=== PATIENT | female | born 1970 | race Caucasian/White ===

== ENCOUNTER → 2018-01-16 11:22 | Outpatient (CLI) | payer BC, SELFPAY | PROVIDERS: PCP Family Medicine; Visit Provider Physician Assistant | DX: G47.33 Obstructive sleep apnea (adult) (pediatric) (principal); I10 Essential (primary) hypertension; R00.2 Palpitations; R06.09 Other forms of dyspnea; R42 Dizziness and giddiness; Z82.49 Family history of ischemic heart disease and other diseases of the circulatory system; Z87.891 Personal history of nicotine dependence | CPT/HCPCS: 93225; 93226 ==

== ENCOUNTER → 2018-01-25 07:41 | Outpatient (CLI) | payer BC, SELFPAY ==
--- NOTE | 2018-01-25 07:43 | CA_ITS ---
PROCEDURE: 2-D M-mode and color Doppler study INDICATIONS FOR THE TEST: Chest pain COPD Heart Murmur Tobacco Smoking Palpitations+ Fatigue+ Syncope Edema+ Hypertension+Diabetes Mellitus Rheumatic Fever SOB+CHAPARRO+Obesity Hyperlipidemia Family History HD+ Additional History PATIENT INFORMATION HEIGHT: 62 WEIGHT: 205 GENDER: Female B/P: 118/75 2-D/M-MODE INTERPRETATION: 2-D MEASUREMENTS OBSERVED VALUES IN CMS Right Ventricular Dimension (RVDd) 2.3 Interventricular Septum (Thickness)(IVsd) 0.8 Left Ventricular Internal Dimensions(LVIDd) 5.0 Left Ventricular Posterior Wall (Thickness)(LVPWd) 0.8 Aortic Root 2.8 Aortic Cusp Separation 2.0 Left Atrial Dimensions (LAD) 3.8 2D 1. Left atrium is normal size, left ventricle is normal size, there is no concentric left ventricular hypertrophy, visually estimated ejection fraction of 55% with no regional wall motion abnormality. 2. The right atrium and right ventricle are normal size and contractility. 3. The aortic, mitral and tricuspid valvular grossly normal. 4. The pulmonic valve is poorly visualized. 5. No significant pericardial effusion noted DOPPLER INTERROGATION: Doppler interrogation of the aortic, mitral and tricuspid valvular presence of mild mitral and tricuspid regurgitation, tricuspid regurgitation jet velocity is inadequate for calculation of the right ventricular systolic pressure, diastolic parameters are within normal range. CONCLUSION: 1. Normal left ventricular size, preserved left ventricular systolic function, visually estimated ejection fraction of 55% with no regional wall motion abnormality, diastolic parameters are within normal range. 2. Mild mitral and tricuspid regurgitation 3. No significant pericardial effusion noted.
== END ==
PROVIDERS: PCP Family Medicine; Visit Provider Internal Medicine
DX: R00.2 Palpitations (principal); R06.09 Other forms of dyspnea; G47.33 Obstructive sleep apnea (adult) (pediatric); I10 Essential (primary) hypertension; R42 Dizziness and giddiness; Z82.49 Family history of ischemic heart disease and other diseases of the circulatory system; Z87.891 Personal history of nicotine dependence
CPT/HCPCS: 93017; 93306

== ENCOUNTER 2018-07-27 09:05 | Emergency (ER) | payer BC, SELFPAY ==
[2018-07-27 09:26] VITALS: BP 104/68; PULSE 84; RESP 18; TEMP 37.2; O2SAT 96; BMI 40.2
--- NOTE | 2018-07-27 09:33 | HMH.EDUTC ---
[facility] [place] Clinical Impression: Urinary tract infection Qualifiers: Urinary tract infection type: site unspecified Hematuria presence: with hematuria Qualified Code(s): N39.0 - Urinary tract infection, site not specified; R31.9 - Hematuria, unspecified Disposition: Home, Self-Care Condition on Discharge: Good Instructions: Sore Throat, Urinary Tract Infection, DI for Urinary Tract Infection (UTI), Nitrofurantoin, Phenazopyridine Additional Instructions: *Increase fluids. Water not Soda or Tea *Start antibiotic immediately and be sure to take as ordered for the FULL length of time although you should start to see improvement over the next 48 hours *Pyridium as needed Remember this medication will turn your urine [place]. This is normal but it will stain what ever it gets on *You should not use Pyridium for more than 48 hours. If so , follow up with your primary physician to review urine culture and ensure that antibiotic is adequate for infection *Be SURE to follow up anytime for new or worsening symptoms with your family doctor. AND in 48 hours for urine culture results with your family doctor, if you do not have a doctor then you may call back to the [facility] for urine culture results and further treatment. We do recommend that you choose and establish care with a Primary Care Physician. AND follow up with them in 10-14 days to repeat UA to ensure infection is resolved and blood no longer present *Be sure to let your PCP know that we sent urine cultures from the [facility] so they can follow up to ensure that you area the on the correct antibiotic Call your doctor office and make appointment for 48 hours (2 days from today) to follow up and get the results of your urine culture and further treatment and that you had blood in your urine. *Monitor Temp, Over the counter Motrin or Tylenol as directed/as needed Tylenol every 4 hours and Motrin every 6 hours (as long as your family doctor has told you that you can take it) for fever or pain. and straight to ER if unable to lower temp less than 101.0 after medication given *Warm salt water gargles may help to soothe the throat *Throat Lozenges *Warm fluids *Sleep elevated *Humidifier/Vaporizer Your throat swab was sent for culture. Those results are typically sent to your primary care. Be sure to follow up in 2-3 days with your family doctor/primary care physician if no improvement so they can review those result and treat if necessary. If you don?t have a primary care doctor, I recommend you get one but in the mean time, you will have to return to a walk in clinic Follow up IMMEDIATELY for new or worsening symptoms or no Noticeable improvement over the next 48-72 hours. 911 for difficulty breathing or swallowing Prescriptions: Nitrofurantoin Monohyd/M-Cryst [Macrobid 100 mg Capsule] 100 mg PO BID #14 cap Phenazopyridine HCl [Pyridium 200mg Tablet] 200 pow PO TID #6 tab Referrals: Jj Jacobs [Primary Care Provider] - As needed Time of Disposition: 09:47 Medical Decision Making - Luciano Inquiry Pt receiving controlled substance: No Luciano was queried for this patient: No Vital Signs: 07/27/18 09:26 Temperature 98.9 F Temperature Source Oral Pulse Rate [Right Brachial] 84 Respiratory Rate 18 Blood Pressure [Right Arm] 104/68 L Blood Pressure Mean [Right Arm] 80 Blood Pressure Source [Right Arm] Automatic Cuff Blood Pressure Position [Right Arm] Sitting 02 Sat by Pulse Oximetry 96 Oxygen Delivery Method Room Air - Lab Data Lab results reviewed: Yes: I reviewed the patient's lab results. [facility] [place] - General Stated complaint: Possible UTI, Sore throat Time Seen by Provider: 07/27/18 09:33 Mode of Arrival: Family Vehicle Source of Information: Patient Limitations: No Limitations Description of Symptoms (Recalled from Triage Doc. by RN): c/o burning with urination and frequency and sore throat since yesterday HEENT Symptoms (Recalled from RN notes): Yes Resp Sympto
[2018-07-27 09:38] LABS: UTC Strep Screen (Rapid) Negative (Negative)
--- NOTE | 2018-07-27 09:38 | ED_ITS ---
[facility] [place] Clinical Impression: Urinary tract infection Qualifiers: Urinary tract infection type: site unspecified Hematuria presence: with hematuria Qualified Code(s): N39.0 - Urinary tract infection, site not specified; R31.9 - Hematuria, unspecified Disposition: Home, Self-Care Condition on Discharge: Good Instructions: Sore Throat, Urinary Tract Infection, DI for Urinary Tract Infection (UTI), Nitrofurantoin, Phenazopyridine Additional Instructions: *Increase fluids. Water not Soda or Tea *Start antibiotic immediately and be sure to take as ordered for the FULL length of time although you should start to see improvement over the next 48 hours *Pyridium as needed Remember this medication will turn your urine [place]. This is normal but it will stain what ever it gets on *You should not use Pyridium for more than 48 hours. If so , follow up with your primary physician to review urine culture and ensure that antibiotic is adequate for infection *Be SURE to follow up anytime for new or worsening symptoms with your family doctor. AND in 48 hours for urine culture results with your family doctor, if you do not have a doctor then you may call back to the [facility] for urine culture results and further treatment. We do recommend that you choose and establish care with a Primary Care Physician. AND follow up with them in 10-14 days to repeat UA to ensure infection is resolved and blood no longer present *Be sure to let your PCP know that we sent urine cultures from the [facility] so they can follow up to ensure that you area the on the correct antibiotic Call your doctor office and make appointment for 48 hours (2 days from today) to follow up and get the results of your urine culture and further treatment and that you had blood in your urine. *Monitor Temp, Over the counter Motrin or Tylenol as directed/as needed Tylenol every 4 hours and Motrin every 6 hours (as long as your family doctor has told you that you can take it) for fever or pain. and straight to ER if unable to lower temp less than 101.0 after medication given *Warm salt water gargles may help to soothe the throat *Throat Lozenges *Warm fluids *Sleep elevated *Humidifier/Vaporizer Your throat swab was sent for culture. Those results are typically sent to your primary care. Be sure to follow up in 2-3 days with your family doctor/primary care physician if no improvement so they can review those result and treat if necessary. If you don?t have a primary care doctor, I recommend you get one but in the mean time, you will have to return to a walk in clinic Follow up IMMEDIATELY for new or worsening symptoms or no Noticeable improvement over the next 48-72 hours. 911 for difficulty breathing or swallowing Prescriptions: Nitrofurantoin Monohyd/M-Cryst [Macrobid 100 mg Capsule] 100 mg PO BID #14 cap Phenazopyridine HCl [Pyridium 200mg Tablet] 200 pow PO TID #6 tab Referrals: Jj Jacobs [Primary Care Provider] - As needed Time of Disposition: 09:47 Medical Decision Making - Luciano Inquiry Pt receiving controlled substance: No Luciano was queried for this patient: No Vital Signs: 07/27/18 09:26 Temperature 98.9 F Temperature Source Oral Pulse Rate [Right Brachial] 84 Respiratory Rate 18 Blood Pressure [Right Arm] 104/68 L Blood Pressure Mean [Right Arm] 80 Blood Pressure Source [Right Arm] Automatic Cuff Blood Pressure Position [Right Arm] Sitting 02 Sat by Pulse Oximetry 96 Oxygen Delivery Method Room Air - Lab Data Lab
[2018-07-27 09:47] LABS: Color,Urine Yellow (Yellow)
[2018-07-27 09:48] VITALS: BP 104/68; PULSE 84; RESP 18; TEMP 37.2; O2SAT 96
[2018-07-27 09:48] LABS: Apearance,Urine Clear (Clear); Glucose,Urine (UA) Negative (Negative); Ketones,Urine Negative (Negative); PH,Urine 6.5 (5.0-8.5); Protein,Urine 1+ (Negative)
[2018-07-27 09:49] LABS: Bilirubin,Urine Negative (Negative); Blood, Urine 1+ (Negative); Urobilinogen,Urine 0.2 EU/dl (0.2)
[2018-07-27 09:50] LABS: UTC Leukocyte Esterase,Urine Negative (Negative); UTC Nitrate,Urine Negative (Negative)
== END 2018-07-27 09:51 | disposition home or self-care (01) ==
PROVIDERS: Emergency Provider Nurse Practitioner; PCP Family Medicine
DX: N39.0 Urinary tract infection, site not specified (principal); F41.8 Other specified anxiety disorders; K21.9 Gastro-esophageal reflux disease without esophagitis; I10 Essential (primary) hypertension; Z87.891 Personal history of nicotine dependence
CPT/HCPCS: 81003; 87086; 87088; 87186; 87880; 99202

== ENCOUNTER 2020-03-26 10:27 | Emergency (ER) | payer BC, SELFPAY ==
[2020-03-26 11:23] VITALS: BP 105/72; PULSE 76; RESP 16; TEMP 36.3; O2SAT 98; BMI 34.7
--- NOTE | 2020-03-26 11:28 | HMH.EDUTC ---
[place] Disposition Clinical Impression: Exposure to COVID-19 virus Disposition: Home, Self-Care Condition on Discharge: Good Instructions: DI for COVID-19 (Suspected or Confirmed ), Coronavirus Disease 2019, COVID-19: Testing and Tracing, Preventing the Spread of Coronavirus Discharge Instructions Additional Instructions: *Monitor Temp, Over the counter Motrin or Tylenol as directed/as needed Tylenol every 4 hours and Motrin every 6 hours (as long as your family doctor has told you that you can take it) for fever or pain. and straight to ER if unable to lower temp less than 101.0 after medication given Follow up IMMEDIATELY for new or worsening symptoms or no Noticeable improvement over the next 48-72 hours. 911 for difficulty breathing or swallowing You were tested for today for COVID19 your test result should be back in the next 24-48 hours, you may call to the [facility] to see if your test results are back in the next 48 hours [phone] [facility] hours are 9am-9pm You was given a handout with instructions for Self Quarantine and Self isolation for while you wait on test results and what to do if they are positive If you are positive the Health Dept will be contacting you also Referrals: Jj Jacobs JR, MD [Primary Care Provider] - Forms: Work/School Release Time of Disposition: 11:29 Medical Decision Making - Luciano Inquiry Pt receiving controlled substance: No Luciano was queried for this patient: No Vital Signs: 03/26/20 11:23 03/26/20 11:38 Temperature 97.3 F L 97.3 F L Temperature Source Oral Pulse Rate 76 Pulse Rate [Right] 76 Respiratory Rate 16 16 Blood Pressure 105/72 L Blood Pressure [Right Arm] 105/72 L Blood Pressure Mean [Right Arm] 83 Blood Pressure Source Automatic Cuff Blood Pressure Source [Right Arm] Automatic Cuff Blood Pressure Position Sitting Blood Pressure Position [Right Arm] Sitting 02 Sat by Pulse Oximetry 98 Oxygen Delivery Method Room Air Room Air Orders (Tests/Meds): ORDERS Category Date Time Status Covid-19 Nasal PCR ([facility]) Routine Lab 03/26/20 11:05 Received [place] HPI - General Stated complaint: exposure Time Seen by Provider: 03/26/20 11:28 Mode of Arrival: Ambulatory Source of Information: Patient Limitations: No Limitations Description of Symptoms (Recalled from Triage Doc. by RN): covid exposure. no symptoms HEENT Symptoms (Recalled from RN notes): No Resp Symptoms (Recalled from RN notes): No Skin Symptoms (Recalled from RN notes): No MS Symptoms (Recalled from RN notes): No Functional Status (Recalled from RN notes): na - History of Present Illness Provider Complaint: Patient states that she was recently around someone that has since tested positive for COVID States that she isnt having any symptoms but wanted to get tested due to exposure - Related Data Home Medications Medication Instructions Recorded Confirmed omeprazole 40 mg capsule,delayed 40 mg PO DAILY 01/16/18 05/13/19 release lisinopril 20 mg tablet 20 mg PO BID tab 02/28/18 05/13/19 doxepin 50 mg capsule 25 mg PO QHS 30 Days #30 cap 03/25/18 05/13/19 Rosuvastatin Calcium [Crestor 10mg 10 mg PO DAILY 05/13/19 05/13/19 Tablets] ursodioL [Actigall 300mg capsule] 300 mg PO BID 05/13/19 05/13/19 Previous Rx's Medication Instructions Recorded Fluticasone Propionate [Flonase 1 spr NS DAILY #1 bottle 05/13/19 50mcg nasal spray 16gm] Allergies Allergy/AdvReac Type Severity Reaction Status Date / Time simvastatin Allergy Verified 07/27/18 09:32 - Worker's Comp Is this a Worker's Comp case?: No [facility] History - Hepatitis A Screen Drug use history?: No High risk sexual behaviors?: No History of sexually transmitted infection?: No Currently employed?: No Childcare worker?: No Do you have indoor plumbing?: Yes Do you have electricity?: Yes Attestation statement:: This patient has been screened for Hepatitis A risk factors. I have reviewed the patien
[2020-03-26 11:38] VITALS: BP 105/72; PULSE 76; RESP 16; TEMP 36.3; O2SAT 98
--- NOTE | 2020-03-26 15:06 | PC.NURSE ---
patient notified of positive covid results
== END 2020-03-26 11:39 | disposition home or self-care (01) ==
PROVIDERS: Emergency Provider Nurse Practitioner; PCP Family Medicine
DX: U07.1 COVID-19 (principal); I10 Essential (primary) hypertension; K21.9 Gastro-esophageal reflux disease without esophagitis; F41.9 Anxiety disorder, unspecified; Z79.899 Other long term (current) drug therapy
CPT/HCPCS: 99202; G0463; U0003

== ENCOUNTER → 2021-01-07 14:55 | Outpatient (CLI) | payer BC, SELFPAY ==
--- NOTE | 2021-01-07 14:56 | CA_ITS ---
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: Mireille Cooper, RCS, RVS Ht: 5 ft 2 in Wt: 192lbs BSA: 1.88 BP: 110/75 mmHg Indications: SOA CARDIAC CLEARANCE,H/O COVID 2D Dimensions Aortic Root 2.98 cm F: 2.7 - 3.3 LA Volume 39.30 mL Left Atrium 3.62 cm F: 2.7 - 3.8 LA Volume Index 20.90 mL/m2 (M/F) 16-34 LVOT 2.00 cm (M/F) 1.5-2.5 M-Mode Dimensions RVDd 2.18 cm (0.9-2.6) LVDd 4.96 cm (3.5-5.7) LVDs 3.43 cm (3.5-5.7) IVSd 0.75 cm (0.6-1.1) PWd 0.93 cm (0.6-1.1) EF (Teich) 58.20% EPSs 0.86 cm FS 30.80% EDV (Teich) 116.10 mL ESV (Teich) 48.50 mL LV Diastology E Decel Time 307.00 (160-240 msec) E/A Ratio 1.15 MED E' 9.40 (< 7 cm/sec) MED A' 10.60 cm/s E'/MED E' Ratio 5.60 (>14) LAT E' 13.80 (<10 cm/sec) LAT A' 9.70 cm/s E/LAT E' Ratio 3.81 (>14) Pulm Vein s 28.00 cm/sec Pulm Vein d 21.00 cm/sec Ar-A Duration 160.00 msec Aortic Valve LVOT Max 90.00 (70-110 cm/s) LVOT VTI 16.98 cm AoV Peak Juan Alberto. 124.00 (50-130 cm/s) AO Peak GR. 6.20 mmHg AO Mean GR. 3.10 (<5 mmHg) AO VTI 22.63 (18-25 cm) JOSE (VTI) 2.36 (2.5-4.5 cm2) Mitral Valve MV A Velocity 46.00 (40-130 cm/s) E/A Ratio 1.15 MV Decel. Time 307.00 (160-240 ms) Pulmonary Valve PV Peak Velocity 79.00 (50-150 cm/s) Tricuspid Valve TR P. Velocity 201.00 cm/s RAP Estimate 10.00 mmHg RVSP 26.10 mmHg Left Ventricle Left atrium is normal size, left ventricle is normal size, there is no concentric left ventricular hypertrophy, visually estimated ejection fraction 55% with no regional wall motion abnormality, diastolic parameters are within normal range. Right Ventricle Right atrium and right ventricle are normal size and contractility. Aortic Valve Aortic valve is grossly normal, there is no aortic stenosis or aortic insufficiency. Mitral Valve Mitral valve grossly normal, there is trace mitral regurgitation. Tricuspid Valve Tricuspid grossly normal, there is trace tricuspid regurgitation, calculated right ventricular systolic pressure is within normal range. Pulmonic Valve Pulmonic valve is poorly visualized. Great Vessels Aortic root is normal size. Inferior vena cava is normal size with normal inspiratory collapse. Pericardium No significant pericardial effusion noted. Conclusion 1. Normal left ventricular size, preserved left ventricular systolic function, visually estimated ejection fraction 55% with no regional wall motion abnormality, diastolic parameters are within normal range. 2. Trace mitral and tricuspid regurgitation, calculated right ventricular systolic pressure is within normal range. 3. Inferior vena cava is normal size with normal inspiratory collapse. Electronically signed by : Kaushik Kaufman MD 01/10/2021 21:21:11
== END ==
PROVIDERS: PCP Family Medicine; Visit Provider Nurse Practitioner Family
DX: Z01.810 Encounter for preprocedural cardiovascular examination (principal); I10 Essential (primary) hypertension
CPT/HCPCS: 93306

== ENCOUNTER 2021-08-23 18:43 | Emergency (ER) | payer BC, SELFPAY ==
--- NOTE | 2021-08-23 19:07 | HMH.EDUTC ---
[facility] [place] Clinical Impression: COVID-19, Viral syndrome Disposition: Home, Self-Care Condition on Discharge: Good Instructions: DI for COVID-19 (Suspected or Confirmed ), Preventing the Spread of Coronavirus Discharge Instructions Additional Instructions: Drink plenty of fluids. Take tylenol for pain or fever. Follow up with your regular doctor. GO TO THE ER FOR ANY WORSENING SYMPTOMS Quarantine until you know the results of your covid-19 test. Notify your school or workplace of your results and follow their instructions regarding return to work/school. Referrals: Jj Jacobs JR, MD [Primary Care Provider] - Time of Disposition: : Medical Decision Making - Medical Records Medical records reviewed: No: I reviewed the patient's medical records. - Luciano Inquiry Pt receiving controlled substance: No Vital Signs: 08/23/21 19:11 Temperature 98.8 F Temperature Source Oral Pulse Rate [Left Radial] 76 Respiratory Rate 18 Blood Pressure [Right Arm] 118/75 Blood Pressure Mean [Right Arm] 89 02 Sat by Pulse Oximetry 94 L Orders (Tests/Meds): ORDERS Category Date Time Status Covid-19 Nasal PCR ([facility]) Routine Lab 08/23/21 19:[address] [facility] [place] HPI - General Stated complaint: covid test Time Seen by Provider: 08/23/21 19:07 - History of Present Illness Provider Complaint: She states that she has been feeling bad and having low grade fever and body aches for the past 3 days. She found out today that she was exposed to covid-19 at her job last week, so she took a home covid test that was positive. She has had covid-19 last year and she did ok with it. She denies any shortness of breath - Related Data Home Medications Medication Instructions Recorded Confirmed Rosuvastatin Calcium [Crestor 10mg 10 mg PO DAILY 05/13/19 05/10/20 Tablets] doxepin 50 mg capsule 50 mg PO QHS 30 Days #30 cap 05/10/20 05/10/20 omeprazole 40 mg capsule,delayed 20 mg PO BID cap 05/10/20 05/10/20 release Allergies Allergy/AdvReac Type Severity Reaction Status Date / Time simvastatin Allergy Verified 05/10/20 09:47 [facility] History - Hepatitis A Screen Attestation statement:: This patient has been screened for Hepatitis A risk factors. I have reviewed the patient's past medical history: Yes Medical History: Reports:: Anxiety, Depression, Gastroesophageal Reflux Disease(GERD), Hypertension Laterality Cases: Left: Arthroscopy Shoulder, Bilateral: Tonsillectomy Other Surgeries: Yes: Hernia Repair, Other Amputation: No Fractures: No - Social History Smoking Status: Former smoker # Packs/Day (cigarettes): 2 #Yrs smoked (if former smoker): 30 Alcohol Intake: never Substance Use Type: denies use Occupational Status: other - Psychiatric History Pschychiatric History:: Reports:: Anxiety, Depression Family Hx:: Coronary Artery Disease, Heart Attack, Diabetes, Hypertension Comment: Father-[place]@ 31. Paternal Grandmother-[place] at 60's ( of [place]) ROS Obtained: Yes All systems reviewed & no additional complaints - Constitutional Constitutional: Reports chills, Reports fever(s), Reports poor appetite, Reports malaise - Eyes Eyes: Reports eye discharge - ENT Ears, Nose, Mouth, and Throat: Reports as per HPI - Cardiovascular Cardiovascular: Denies chest pain - Respiratory Respiratory: Reports as per HPI - Gastrointestinal Gastrointestingal: Denies: abdominal pain, diarrhea, nausea, vomiting - Genitourinary Female Genitourinary: Denies dysuria, Denies urinary frequency, Denies urinary incontinence, Denies urinary hesitancy, Denies urinary urgency - Musculoskeletal Musculoskeletal: Denies joint pain - Integumentary/Breasts Skin/Breast: Denies rash Physical Exam - General General appearance: alert, in no apparent distress - Head Head exam: atraumatic, normocephalic, normal inspection - Eye Eye exam: Present: normal appearance, PERRL, EOMI - ENT
[2021-08-23 19:11] VITALS: BP 118/75; PULSE 76; RESP 18; TEMP 37.1; O2SAT 94; BMI 35.6
[2021-08-23 19:40] VITALS: BP 118/75; PULSE 76; RESP 18; TEMP 37.1
== END 2021-08-23 19:46 | disposition home or self-care (01) ==
PROVIDERS: Emergency Provider Nurse Practitioner Family; PCP Family Medicine
DX: U07.1 COVID-19 (principal); R50.9 Fever, unspecified; R52 Pain, unspecified; Z88.1 Allergy status to other antibiotic agents
CPT/HCPCS: 99212; C9803; G0463; U0003; U0005

== ENCOUNTER 2021-09-05 18:29 | Emergency (ER) | payer BC, SELFPAY ==
--- NOTE | 2021-09-05 19:07 | HMH.EDUTC ---
[facility] [place] Clinical Impression: Need for Tdap vaccination Laceration of left thumb Qualifiers: Encounter type: initial encounter Damage to nail status: without damage Foreign body presence: without foreign body Qualified Code(s): S61.012A - Laceration without foreign body of left thumb without damage to nail, initial encounter Disposition: Home, Self-Care Condition on Discharge: Good Instructions: DI for Laceration Repair-Skin Glue, Tetanus, Diphtheria, Pertussis (Tdap) Vaccine Additional Instructions: Keep the wounds clean and dry. Follow up with your regular doctor. Watch the wounds for signs of worsening infection, such as worsening redness, drainage, swelling, etc. GO TO THE ER FOR ANY WORSENING SYMPTOMS Referrals: Jj Jacobs JR, MD [Primary Care Provider] - Time of Disposition: 19:29 Medical Decision Making - Medical Records Medical records reviewed: No: I reviewed the patient's medical records. - Luciano Inquiry Pt receiving controlled substance: No Vital Signs: 09/05/21 19:16 09/05/21 20:06 Temperature 97.5 F L 97.5 F L Temperature Source Oral Pulse Rate 73 Pulse Rate [Left Radial] 73 Respiratory Rate 17 17 Blood Pressure 136/97 H Blood Pressure [Right Arm] 136/97 H Blood Pressure Mean [Right Arm] 110 02 Sat by Pulse Oximetry 95 Orders (Tests/Meds): ED MEDICATIONS Discontinued Medications Generic Name Dose Route Start Last Admin Trade Name Freq PRN Reason Stop Dose Admin Tetanus/Reduced Diphtheria/Acell Pertussis 0.5 ml 09/05/21 19:24 09/05/21 19:38 Tet/Diphth/Pert-Adult 0.5ml Syringe IM 09/05/21 19:25 0.5 ml .ONCE ONE Administration ORDERS Category Date Time Status Full Resp Panel w/COVID ([facility]) Routine Lab 09/05/21 20:03 Received [facility] [place]PI - General Stated complaint: AO 09/05@1820 Left thumb Lac Time Seen by Provider: 09/05/21 19:07 - History of Present Illness Provider Complaint: She states that 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 Her tetanus immunization is not up to date. - Related Data Home Medications Medication Instructions Recorded Confirmed Rosuvastatin Calcium [Crestor 10mg 10 mg PO DAILY 05/13/19 05/10/20 Tablets] doxepin 50 mg capsule 50 mg PO QHS 30 Days #30 cap 05/10/20 05/10/20 omeprazole 40 mg capsule,delayed 20 mg PO BID cap 05/10/20 05/10/20 release Allergies Allergy/AdvReac Type Severity Reaction Status Date / Time simvastatin Allergy Verified 05/10/20 09:47 [facility] History - Hepatitis A Screen Attestation statement:: This patient has been screened for Hepatitis A risk factors. I have reviewed the patient's past medical history: Yes Medical History: Reports:: Anxiety, Depression, Gastroesophageal Reflux Disease(GERD), Hypertension Laterality Cases: Left: Arthroscopy Shoulder, Bilateral: Tonsillectomy Other Surgeries: Yes: Hernia Repair, Other Amputation: No Fractures: No - Social History Smoking Status: Former smoker # Packs/Day (cigarettes): 2 #Yrs smoked (if former smoker): 30 Alcohol Intake: never Substance Use Type: denies use Occupational Status: other - Psychiatric History Pschychiatric History:: Reports:: Anxiety, Depression Family Hx:: Coronary Artery Disease, Heart Attack, Diabetes, Hypertension Comment: Father-[place]@ 31. Paternal Grandmother-[place] at 60's ( of [place]) ROS Obtained: Yes All systems reviewed & no additional complaints - Constitutional Constitutional: Denies chills, Denies fever(s) - Musculoskeletal Musculoskeletal: Denies joint pain - Integumentary/Breasts Skin/Breast: Reports as per HPI - Neurologic Neurologic: Denies tingling/numbness/burning sensations Physical Exam - General General appearance: alert, in no apparent distress - Head Head exam: atraumatic, normocephalic, normal inspection - Eye Eye exam: Present: normal ap
[2021-09-05 19:16] VITALS: BP 136/97; PULSE 73; RESP 17; TEMP 36.4; O2SAT 95; BMI 34.5
[2021-09-05 20:06] VITALS: BP 136/97; PULSE 73; RESP 17; TEMP 36.4
[2021-09-05 20:56] LABS: Adenovirus,PCR Not Detected (NotDetected); Bordetella Pertussis Not Detected (NotDetected); Chlamydophila Pneumoniae, PCR Not Detected (NotDetected); Coronavirus 229E Not Detected (NotDetected); Coronavirus NL63 Not Detected (NotDetected); Coronavirus OC43 Not Detected (NotDetected); Coronovirus HKU1,PCR Not Detected (NotDetected); Human Metapneumovirus Not Detected (NotDetected); Influenza A, PCR Not Detected (NotDetected); Influenza AH1, 2009 Not Detected (NotDetected); Influenza AH1, PCR Not Detected (NotDetected); Influenza AH3,PCR Not Detected (NotDetected); Influenza B, PCR Not Detected (NotDetected); Mycoplasma Pneumoniae, PCR Not Detected (NotDetected); Parainfluenza 1, PCR Not Detected (NotDetected); Parainfluenza 2, PCR Not Detected (NotDetected); Parainfluenza 3, PCR Not Detected (NotDetected); Parainfluenza 4, PCR Not Detected (NotDetected); Respiratory Syncytial Virus Not Detected (NotDetected); Rhinovirus/Enterovirus Not Detected (NotDetected)
[2021-09-05 23:26] LABS: Coronavirus 19, PCR Detected (NotDetected)
== END 2021-09-05 20:07 | disposition home or self-care (01) ==
PROVIDERS: Emergency Provider Nurse Practitioner Family; PCP Family Medicine
DX: S61.012A Laceration without foreign body of left thumb without damage to nail, initial encounter (principal); Z23 Encounter for immunization; W26.0XXA Contact with knife, initial encounter; Y93.H2 Activity, gardening and landscaping; Z88.8 Allergy status to other drugs, medicaments and biological substances
CPT/HCPCS: 87581; 87632; 87798; 90471; 90715; 99212; 99213; C9803; G0463; U0003; U0005

== ENCOUNTER 2022-11-14 15:54 | Emergency (ER) | payer BC, SELFPAY ==
--- NOTE | 2022-11-14 15:59 | XR_ITS ---
PROCEDURE INFORMATION: Exam: XR Right Hand Exam date and time: 11/14/2022 3:53 PM Age: 52 years old Clinical indication: Pain; Hand; Right TECHNIQUE: Imaging protocol: Radiologic exam of the right hand. Views: 3 or more views. COMPARISON: No relevant prior studies available. FINDINGS: Bones/joints: Normal. Soft tissues: Normal. IMPRESSION: No acute findings.
[2022-11-14 16:10] VITALS: BP 119/72; PULSE 79; RESP 20; TEMP 36.7; O2SAT 99; BMI 38.4
--- NOTE | 2022-11-14 16:13 | EXP.UTC ---
Discharge Plan Disposition Patient Disposition: Home, Self-Care Condition: Good Prescriptions Prescriptions: No Action doxepin 50 mg capsule 50 mg PO QHS 30 Days Qty: 30 omeprazole 40 mg capsule,delayed release(DR/EC) 20 mg PO BID rosuvastatin 10 MG tablet 10 mg PO DAILY Referrals Follow up/Referrals: Dewey Juarez MD [Primary Care Provider] - See instructions Alex Rider DO [Staff Physician] - See instructions Activity Restrictions/Add. Instructions Additional Instructions/Restrictions: Rest your hand for the next few days as much as you can, Elevate the extremity as tolerated while you are resting. Follow up with Dr. Rider (orthopedics) if you continue to have pain in your finger. I put in a referral but you need to call his office and schedule an appointment. Follow up with your regular doctor. GO TO THE ER FOR ANY WORSENING SYMPTOMS Clinical Impressions Clinical Impression: Other sprain of right middle finger, initial encounter Instructions Patient Instructions: DI for Finger Sprain, Finger Sprain Discharge ED Provider: Arnel Finch [facility] General Stated complaint: AO right middle finger Time Seen by Provider: 11/14/22 16:12 History of Present Illness Provider Complaint: She states that earlier today she was opening a kitchen drawer when her right middle finger got caught on something. This caused her to bend that finger back at the DIP. She has had pain in that area since then. Her pain is worse when she tries to bend the finger or use it in any way. She denies any other injury. Related Data Home Medications Medication Instructions Recorded Confirmed rosuvastatin 10 mg tablet 10 mg PO DAILY Cholesterol 05/13/19 05/10/20 doxepin 50 mg capsule 50 mg PO QHS SLEEP 30 days #30 caps 05/10/20 05/10/20 omeprazole 40 mg capsule,delayed 20 mg PO BID GERD 05/10/20 05/10/20 release Allergies Allergy/AdvReac Type Severity Reaction Status Date / Time simvastatin Allergy Verified 05/10/20 09:47 [facility] Disclaimer: The information contained in this section may have been updated after the patient was seen, as this information can be updated by other users. Medical History HTN (hypertension) HOA on CPAP Social History Smoking Status: Former smoker pack-years: 30 alcohol intake: never substance use type: denies use current occupational status: other Travel in the last 8 weeks: Inside the [place] ROS Obtained: Yes All systems reviewed & no additional complaints except as documented Constitutional Constitutional: Denies chills and Denies fever(s) Eyes Eyes: Denies eye discharge ENT Ears, Nose, Mouth, and Throat: Denies dizziness, Denies otalgia and Denies sore throat Cardiovascular Cardiovascular: Denies chest pain Respiratory Respiratory: Denies shortness of breath, Denies chest congestion, Denies cough, Denies stridor and Denies wheezing Gastrointestinal Gastrointestingal: Denies nausea or vomiting Musculoskeletal Musculoskeletal: Reports as per HPI Integumentary/Breasts Skin/Breast: Denies rash Neurologic Neurologic: Denies dizziness and Denies paresthesias Allergic/Immunologic Allergic/Immunologic: Denies wheezing Physical Exam General General appearance: alert and in no apparent distress Head Head exam: atraumatic, normocephalic and normal inspection Eye Eye exam: Present normal appearance, PERRL and EOMI ENT ENT exam: Present normal exam, normal oropharynx, mucous membranes moist, TM's normal bilaterally and normal external ear exam Neck Neck exam: Present normal inspection, full ROM and trachea midline; Absent meningismus or lymphadenopathy Chest Chest inspection: Present normal inspection and symmetric chest wall rise; Absent tenderness Respiratory Respiratory exam: Present normal lung sounds bilaterally; Absent respiratory d
[2022-11-14 16:28] VITALS: BP 119/72; PULSE 79; RESP 20; TEMP 36.7; O2SAT 99
== END 2022-11-14 16:56 | disposition home or self-care (01) ==
PROVIDERS: Emergency Provider Nurse Practitioner Family; PCP Internal Medicine Adolescent Medicine
DX: S63.692A Other sprain of right middle finger, initial encounter (principal); I10 Essential (primary) hypertension; G47.33 Obstructive sleep apnea (adult) (pediatric); Z87.891 Personal history of nicotine dependence; Z99.89 Dependence on other enabling machines and devices; W23.2XXA Caught, crushed, jammed or pinched between a moving and stationary object, initial encounter
CPT/HCPCS: 73130; 99212; 99214; G0463

== ENCOUNTER → 2023-01-24 08:27 | Outpatient (CLI) | payer BC, SELFPAY ==
[2023-01-24 09:20] LABS: Basophils % 0.6 % (0.1-2.0); Eosinophils # 0.1 K/mm3 (0.0-0.4); Eosinophils % 1.9 % (0.1-12.0); Hematocrit 42.9 % (37.0-47.0); Hemoglobin 14.3 g/dL (12.2-16.2); Lymphocytes # 1.8 K/mm3 (0.7-4.5); Lymphocytes % 36.6 % (10-50); Mean Corpuscular HGB Conc 33.3 g/dL (31.8-35.4); Mean Corpuscular Hemoglobin 32.7 pg (27.0-31.2); Mean Corpuscular Volume 98.1 fl (81-99); Mean Platelet Volume 8.8 fl (7.4-10.4); Monocytes # 0.3 K/mm3 (0.1-1.0); Monocytes % 5.8 % (1.7-9.3); Neutrophils # 2.7 K/mm3 (1.8-7.8); Platelet Count 167 K/mm3 (142-424); Red Blood Count 4.37 M/mm3 (4.20-5.40); Red Cell Distribution Width 13.7 % (11.5-17.5); White Blood Count 4.8 K/mm3 (4.8-10.8)
[2023-01-24 10:18] LABS: Alanine Aminotransferase 25 U/L (12-78); Albumin/Globulin Ratio 1.5 (1.1-1.8); Alkaline Phosphatase 59 U/L (38-126); Anion Gap 10.1 mEq/L (5-15); Aspartate Amino Transferase 32 U/L (14-36); Bilirubin,Total 0.3 mg/dl (0.2-1.3); Blood Urea Nitrogen 19 mg/dl (7-17); Calcium 9.1 mg/dl (8.4-10.2); Carbon Dioxide 31 mmol/L (22.0-30.0); Chloride 104 mmol/L (98-107); Chol/HDL Ratio 3.2 (1-3.5); Cholesterol 171 mg/dl (140-200); Estimated Glomerular Filt Rate 88 ml/min (>60); GFR (African American) 106 ML/MIN (>60); Globulin 2.6 g/dL (1.3-3.2); Glucose 79 mg/dl (74-100); HDL Cholesterol 54 mg/dl (40-60); Potassium 4.1 mmoL/L (3.5-5.1); Sodium 141 mmol/L (136-145); Total Protein,Serum 6.6 g/dl (6.3-8.2); Triglycerides 154 mg/dl (30-150); VLDL Cholesterol 31 mg/dL (0-40)
[2023-01-24 10:29] LABS: Direct LDL Cholesterol 86.44 mg/dL (100-129)
[2023-01-24 10:33] LABS: 25-OH Vitamin D, Total 44.4 ng/mL (30-100)
[2023-01-24 10:37] LABS: Triiodothryronine (T3) Uptake 35 % (23.5-40.5)
[2023-01-24 10:51] LABS: Thyroid Stimulating Hormone 2.28 uIU/mL (0.465-4.68)
[2023-01-24 11:16] LABS: Vitamin B12 > 1000 pg/mL (239-931)
[2023-01-24 11:21] LABS: Free Thyroxine Index 1.9 ug/dL (5.93-13.13); T4 (Thyroxine) 5.3 ug/dl (5.53-11.0)
== END ==
PROVIDERS: PCP Nurse Practitioner Family; Visit Provider Nurse Practitioner Family
DX: Z00.00 Encounter for general adult medical examination without abnormal findings (principal); R53.83 Other fatigue; E53.8 Deficiency of other specified B group vitamins; E55.9 Vitamin D deficiency, unspecified; Z68.35 Body mass index [BMI] 35.0-35.9, adult
CPT/HCPCS: 36415; 80053; 80061; 82306; 82607; 84436; 84443; 84479; 85025

== ENCOUNTER 2023-06-06 15:00 | Outpatient (RCR) | payer BC, SELFPAY ==
--- NOTE | 2023-04-30 10:42 | HMH.OTOPEV ---
OT Inpatient Evaluation Rehab OT Outpatient Eval Start: 04/30/23 10:31 Freq: Status: Active Protocol: Document 04/30/23 10:31 [facility] (Rec: 04/30/23 10:42 [id number]) E-signed By Delvis Villalpando, OT Outpatient Therapy Subjective History Subjective History Pt is a 52 year old female who reports to therapy for initial evaluation to left shoulder. Pt reports she had shoulder surgery ~20 years ago , but is unable to provide information of what was completed in surgery. Within the past 6-7 months she has had increased pain and decreased motion at left shoulder. Pt is left hand dominant. 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 Pt also complains of numbness in left shoulder area, but explains this has been there since her surgery 20 years ago. 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 Upon observation, pt does demonstrate with decreased AROM and strength at left shoulder. At this time, she has not had imaging completed. Pt will continue to be seen twice a week in order to address all left shoulder deficits. Short term goals: 1. Pt will increase left shoulder flexion to 110 degrees in order to complete daily overhead tasks independently ~50% of the time . 2. Pt will increase L shoulder abduction to 110 degrees to complete upper body dressing independently ~50% of the time. 3. Pt will increase L shoulder ER/IR to 60 degrees ( ER) and 45 degrees (IR) in order to complete lower body dressing (putting on and taking off belt) independently ~50% of the time. 4. Pt will increase strength to 3+/5 throughout left shoulder in order to complete heavier household tasks ( laundry, mopping, vacuuming) independently ~50% of the time . 5. Pt will verbalize decreased pain levels at worst in L shoulder to a 5/10 in order to complete daily ADLs independently ~50% of the time . 6. Pt will demonstrate improved endurance by completing left shoulder exercises for ~20 minutes prior to rest break in order to increase his tolerance for daily work activities. 7. Pt will demonstrate independence with HEP of AAROM exercises to increase overall functional use of left shoulder in daily activities ~ 75% of the time. 8. Pt will score a 35 or below on Quck Dash for Activities in order to demonstrate improved overall functional use of LUE. assisted goals: 1. Pt will increase L shoulder flexion to 125 degrees in order to complete daily overhead tasks independently ~75% of the time . 2. Pt will increase L shoulder abduction to 120 degrees to complete upper body dressing independently ~75% of the time. 3. Pt will increase L shoulder ER/IR to 70 degrees ( ER) and 60 degrees (IR)in order to complete lower body dressing (putting on and taking off belt) independently ~75% of the time. 4. Pt will increase strength to 4-/5 throughout left shoulder in order to complete heavier household tasks ( laundry, mopping, vacuuming) independently ~75% of the time . 5. Pt will verbalize decreased pain levels at worst in L shoulder to a 3/10 in order to complete daily ADLs independently ~75% of the time . 6. Pt will demonstrate improved endurance by completing L shoulder exercises for ~30 minutes prior to rest break in order to increase his tolerance for daily work activities. 7. Pt will demonstrate independence with HEP of Rotator cuff strengthening exercises to increase overall functional use of L shoulder for daily activities ~90% of the time. 8. Pt will score a 30 or below on Quck Dash for Activities in order to demonstrate improved overall functional use of LUE. New diagnosis of cancer in past 12 No months? Chief Complaint Pain,Stiff,Weakness Symptom Type Ache,Throb,Sharp,Dull,Numbness Symptoms Relieved By Nothing Symptoms Aggravated By Physical Activity,Lifting Prior Functional Limitations None Current Functional Limitations Reaching,Lifting,Housework, Dressing,Driving,Sleeping Symptom Description Constant but Variable Level of pain today (0-10) 5 Pain scale - at its best (0-10) 3 Pain scale - at its worst (0-10) 7 Shoulder/Elbow Eval Shoulder Objective Measurements Shoulder ROM Left Shoulder Abduction Active Range of 72 degrees Motion (degrees) Shoulder Flexion Active Range of Motion 80 degrees (degrees) Query Text: Shoulder External Rotation Active Range 30 degrees of Motion (degrees) Shoulder Internal Rotation Active Range 42 degrees of Motion (degrees) Shoulder MMT Shoulder Abduction Strength Grade 3- Fair- Shoulder Flexion Strength Grade 3 Fair Shoulder External Rotation Strength 3 Fair Grade Shoulder Internal Rotation Strength 3 Fair Grade Shoulder Strength Patient Testing Sitting Position Shoulder Special Tests impingement sign present shoulder exam left standard Shoulder Empty Can (Supraspinatus) Test Positive Left Shoulder Weeks-Kunal Impingement Positive Left Test Shoulder Neer Impingement Test Positive Left Elbow Objective Measurements QuickDASH Activities Please rate your ability to do the following activities in the last week by selecting the number below the appropriate response. 1. Open a tight or new jar. Moderate difficulty 2. Do heavy manufacturing production technician (e.g., wash Severe difficulty gil, floors). 3. Carry a shopping bag or briefcase. Unable 4. Wash your back. Moderate difficulty 5. Use a knife to cut food. Mild difficulty 6. Recreational activities in which you Severe difficulty take some force or impact through your arm, shoulder, or hand (e.g., golf, hammering, tennis, etc.). 7. During the past week, to what extent Quite a bit has your arm, shoulder or hand problem interfered with your normal social activities with family, friends, neighbors or groups? 8. During the past week, were you Very limited limited in your work or other regular daily activites as a result of your arm, shoulder or hand problem? 9. Arm, shoulder or hand pain. Severe 10. Tingling (pins and needles) in your Moderate arm, shoulder or hand. 11. During the past week, how much Mild difficulty difficulty have you had sleeping because of the pain in your arm, shoulder or hand? Quick DASH 38 Work Module (optional) The following questions ask about the impact of your arm, shoulder or hand problem on your ability to work (including homemaking if that is your main work role). 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 Yes 1. Using your usual technique for your Mild difficulty work? 2. Doing your usual work because of arm, Moderate difficulty shoulder or hand pain? 3. Doing your work as well as you would Severe difficulty like? 4. Spending your usual amount of time Moderate difficulty doing your work? Quick Dash Work Module Score 12 OT Outpatient Assessment Impairments Problems/Impairments Palpation Tenderness,Impaired Range of Motion,Impaired Strength,Impaired Endurance, Impaired Lifting,Impaired Dressing,Impaired Shower/ Bathing,Impaired Household Care,Impaired Recreational Activities,Impaired Work Activities,Subjective C/O Pain Prognosis Rehab Potential Good Clinical Impression Consistent with Diagnosis Yes Outpatient Therapy Plan of Care Treatment Plan May Include Therapeutic Exercise Including Home Yes Exercise Program Manual Therapy Techniques Yes Neuromuscular Re-education Yes Therapeutic Activities to Return to Yes Previous Functional/Work Level ADL/Self Care Education Yes Dry Needling Yes Thermal Modalities Yes Electrical Stimulation Yes Ultrasound/Phonophoresis Yes Iontophoresis Yes Orthotics/Bracing/Splinting Yes Massage Yes Eval/Re-Eval Yes Frequency Times per week 2 Duration Number of Weeks 6 Addendums This patient is a candidate for social No or vocational rehab? Patient/Guardian verbally acknowledges Yes understanding of treatment program and consents to further treatment? Patient/Guardian verbally acknowledges Yes understanding of diagnosis, prognosis and goals for treatment? Eval Complexity OT Charge 36332 - Moderate Complexity PHYSICIAN CERTIFICATION: I certify the specified therapy services for Vinita Riley are required, authorized, and reviewed every 30 days.
== END 2023-06-06 16:10 | disposition home or self-care (01) ==
LOC: OT 15:00
PROVIDERS: PCP Nurse Practitioner Family; Visit Provider Nurse Practitioner Family
DX: M25.512 Pain in left shoulder (principal)
CPT/HCPCS: 97010; 97014; 97110; 97140; 97164; 97166; G0283

== ENCOUNTER 2024-04-16 16:41 | Outpatient (CLI) | payer BC, SELFPAY ==
--- NOTE | 2024-04-16 16:44 | MM_ITS ---
PROCEDURE INFORMATION: Exam: MG Bilateral Screening 3D Mammography Exam date and time: 04/16/2024 4:31 PM Age: 53 years old Clinical indication: Screening examination TECHNIQUE: Imaging protocol: Bilateral Screening tomosynthesis and 2D mammography including computer-aided detection (CAD) when performed. COMPARISON: 1. MG EDIN SCRN MAMMO W/CAD BILAT 09/24/2020 9:51 AM 2. MG EDIN SCRN MAMMO W/CAD BILAT 08/04/2019 1:46 PM FINDINGS: MAMMOGRAPHY: Breast composition: There are scattered areas of fibroglandular density. Mass: No suspicious masses. Architectural distortion: None. Calcifications: No suspicious calcifications. Asymmetric density: None. Skin thickening: None. Axillary adenopathy: None. IMPRESSION: No mammographic evidence of malignancy. Annual screening is recommended unless otherwise clinically indicated. ASSESSMENT: BI-RADS Category 1: Negative.
== END 2024-04-16 23:59 | disposition home or self-care (01) ==
LOC: RAD 16:42
PROVIDERS: PCP Nurse Practitioner Family; Visit Provider Nurse Practitioner Family
DX: Z12.31 Encounter for screening mammogram for malignant neoplasm of breast (principal)
CPT/HCPCS: 77063; 77067

== ENCOUNTER 2024-10-14 09:55 | Outpatient (CLI) | payer BC, SELFPAY ==
--- OUTSIDE RECORDS SUMMARY | 2024-06-28 17:30 | XMS_ITS ---
Author Organization [facility] Address [address] [place] [address] Care Team Providers Care Medical Sonographer Name Role Phone Rosy Rothman Primary Care Provider ROSY ROTHMAN Unavailable Unavaila ble Migration, Provider Unavailable [facility] Conversion Encounter Medications Medication SIG (Take, Route, Frequency, Duration) Notes Start Date End Date Status Fluticasone Propionate 50 MCG/ACT 1 spray(s) in each nostril once a day; Duration: 30 days 01/18/2023 Active Vitamin D3 25 MCG 1 tab(s) orally every other day Active Levocetirizine Dihydrochloride 5 MG 1 tab(s) orally once a day (in the evening); Duration: 30 days Active Sertraline HCl 100 MG 1 tab(s) orally on ce a day; Duration: 90 days Active Famotidine 20 MG 1 tab(s) orally 2 times a day; Duration: 90 days Active Doxepin HCl 100 MG 1 cap(s) orally once a day (at bedtime); Duration: 90 days Active buPROPion HCl ER (XL) 300 MG 1 tab(s) orally every 24 hours; Duration: 30 days Active Diclofenac Sodium 1 % as directed applie d topically 3 times a day; Duration: 30 days prn 04/19/2023 Active Rosuvastatin Calcium 10 MG 1 tab(s) orally once a day; Duration: 90 days Active Multivitamin 1 TAB ONCE A DAY 2tabs *Please review and pick correct strength-formulat ion from [email or web address] options. If intended option is not shown, discontinue and re-order from Quick Search* Active Methocarbamol 500 MG 1-2 tab(s) orally 3 times a day; Duration: 5 day(s) 06/21/2024 Active Tylenol Extra Strength 500 MG 2 tab(s) orally every 6 hours Active MiraLax - DIRECTED ORALLY ONCE A DAY *Please review and pick correct strength-formulat ion from [employer] options. If intended option is not shown, discontinue and re-order from Quick Search* Active Tirzepatide 12.5 MG/0.5 ML 0.3 ML SUBCUTANEOUSLY ONCE A WEEK *Please review and pick correct strength-formulat ion from [email or web address] options. If intended option is not shown, discontinue and re-order from Quick Search* Active Encounters Encounter Location Date Provider Diagnosis [facility] [address] [facility] [address] [facility] [address] [place] [address] 06/28/2024 Provider Migration Thoracic myofascial strain, initial encounter S29.019A Assessments Encounter Date Diagnosis (ICD Code) Assessment Notes Treatment Notes Treatment Clinical Notes Section Notes 06/28/2024 Thoracic myofascial strain, initial encounter (ICD-10 - S29.019A) Plan Of Treatment Medication Medication Name Sig Start Date Stop Date Notes Methocarbamol 500 MG 1-2 tab(s) orally 3 times a day; Duration: 5 day(s) 06/21/2024 Next Appt Details Provider Name:Leslie Dahl, 04/09/2025 04:00:00 PM, [address] [place] [facility] [address] [facility], [address], [place], [address], Progress Notes * Vinita RILEYDOB:1970 (54 yo F)Acc No.[id number]:06/28/2024 Patient: Melissa MARCUSberly Provider: Mona Noble :1970 A ge:53 Y S ex:Female Date:06/28/2024 Address:[address] [place], [place] [id number] Pcp:Rosy L Lorna Subjective: * Chief Complaints: * [facility] * Medical History: * Medications: T aking Tylenol Extra Strength 500 MG Tablet 2 tab(s) orally every 6 hours , Taking MiraLax - POWDER FOR RECONSTITUTION DIRECTED ORALLY ONCE A DAY , Notes to Pharmacist: *Please review and pick correct strength-formulation from [email or web address] options. If intended option is not shown, discontinue and re-order from Quick Search*, Taking Tirzepatide 12.5 MG/0.5 ML SOLUTION 0.3 ML SUBCUTANEOUSLY ONCE A WEEK , Notes to Pharmacist: *Please review and pick correct strength-formulation from [email or web address] options. If intended option is not shown, discontinue and re-order from Quick Search*, Taking Multivitamin 1 TAB ONCE A DAY , Notes to Pharmacist: 2tabs *Please review and pick correct strength-formulation from [email or web address] options. If intended option is not shown, discontinue and re-order from Quick Search*, Taking Diclofenac Sodium 1 % Gel as directed applied topically 3 times a day , Notes to Pharmacist: prn, Taking Rosuvastatin Calcium 10 MG Tablet 1 tab(s) orally once a day , Taking Doxepin HCl 100 MG Capsule 1 cap(s) orally once a day (at bedtime) , Taking buPROPion HCl ER (XL) 300 MG Tablet Extended Release 24 Hour 1 tab(s) orally every 24 hours , Taking Fluticasone Propionate 50 MCG/ACT Suspension 1 spray(s) in each nostril once a day , Taking Vitamin D3 25 MCG Tablet 1 tab(s) orally every other day , Taking Sertraline HCl 100 MG Tablet 1 tab(s) orally once a day , Taking Famotidine 20 MG Tablet 1 tab(s) orally 2 times a day , Taking Levocetirizine Dihydrochloride 5 MG Tablet 1 tab(s) orally once a day (in the evening) Objective: * Vitals: Assessment: * Assessment: 1. T horacic myofascial strain, initial encounter - S29.019A (Primary) Plan: * Treatment: * * Electronic signature of Harvinder chao Migration on 10/14/2024 at 10:00 AM EDT Sign off status: Pending * Provider: Mona hancock Migration Date: 0 06/28/2024 Generated for Ramonita morris/Shantell/Tiffaniitting on: 0 10/14/2024 10:00 AM EDT
--- OUTSIDE RECORDS SUMMARY | 2024-10-09 12:00 | XMS_ITS ---
Author Organization [facility] Address [address] [place] [address] Care Team Providers Care Medical Affairs Specialist Name Role Phone Lizett Rothman Primary Care Provider LIZETT ROTHMAN Unavailable Unavaila Leslie Rodriguez Unavailable [phone] Allergies No Known Allergies REASON FOR VISIT 6 Month F/U-non fasting, yeast under her skin fold on rt side Medications Medication SIG (Take, Route, Frequency, Duration) Notes Start Date End Date Status busPIRone HCl 5 MG 1 tablet Orally Twic a day; Duration: 30 days 07/28/2024 Active Nystatin 565092 UNIT/GM 1 application Ex ternally Twice a day; Duration: 14 days 10/09/2024 Active Doxepin HCl 100 MG 1 cap(s) orally once a day (at bedtime); Duration: 90 days Active Rosuvastatin Calcium 10 MG Take 1 tablet by mouth once daily; Duration: 90 Active buPROPion HCl ER (XL) 300 MG 1 tab(s) orally every 24 hours; Duration: 90 days Active Famotidine 20 MG 1 tab(s) orally 2 ti mes a day; Duration: 90 days Active Sertraline HCl 100 MG 1 tab(s) orally on ce a day; Duration: 90 days Active Levocetirizine Dihydrochloride 5 MG 1 tab(s) orally once a day (in the evening); Duration: 30 days Active Vitamin D3 25 MCG 1 tab(s) orally ever y other day Active Fluticasone Propionate 50 MCG/ACT 1 spray(s) in each nostril once a day; Duration: 30 days 01/18/2023 Active Multivitamin 1 TAB ONCE A DAY Active Tirzepatide 12.5 MG/0.5 ML 0.3 ML SUBCUT ANEOUSLY ONCE A WEEK Active MiraLax - DIRECTED ORALLY O NCE A DAY Active Tylenol Extra Strength 500 MG 2 tab(s) orally every 6 hours Active Social History Tobacco Use: Social History Observation Description Date Details (start date - stop date) Former Smoker NA - NA Smoking: Question Answer Notes Are you a: former smoker Problems Problem Type SNOMED Code ICD Code Onset Dates Problem Status W/U Status Risk Notes Problem GERD without esophagitis (K21.9) Active confirmed Vital Signs Temperature 97.6 degrees Fahrenheit 10/10/19 25 Blood pressure systolic 102 mm Hg 10/10/19 25 Blood pressure diastolic 76 mm Hg 025 Heart Rate 92 /min 10/09/2024 Height 5ft 2in in 10/09/2024 Weight 158.6 lbs 10/09/2024 BMI 29.01 kg/m2 10/09/2024 Encounters Encounter Location Date Provider Diagnosis [facility] [address] [place] [address] 10/09/2024 Leslie Matthews Depression with anxi ety F41.8 ; Vitamin D deficiency E55.9 ; PTSD (post-traumatic stress disorder) F43.10 ; Familial hypercholesterolemia E78.01 ; GERD without esophagitis K21.9 and Yeast dermatitis B37.2 Assessments Encounter Date Diagnosis (ICD Code) Assessment Notes Treatment Notes Treatment Clinical Notes Section Notes 10/09/2024 Depression with anxi ety (ICD-10 - F41.8) Well controlled on current regimen Buproprion likely the cause of dreams, but will change second dose of buspar to 3pm to see if dreams go away. If not recommend decreasing buproprion to 150mg No other changes made today 10/09/2024 Vitamin D deficiency (ICD-10 - E55.9) Continue vit d supplement 10/09/2024 PTSD (post-traumatic stress disorder) (ICD-10 - F43.10) 10/09/2024 Familial hypercholesterolemia (ICD-10 - E78.01) Tolerating statin well Continue diet, low sat fat diet, exercise Will check fasting lipid panel next week 10/09/2024 GERD without esophag itis (ICD-10 - K21.9) Well controlled on H2 vladimir, no changes 10/09/2024 Yeast dermatitis (IC D-10 - B37.2) Keep clean and dry Nystatin until resolved then use deodorant in skin folds for yeast prevention Plan Of Treatment Medication Medication Name Sig Start Date Stop Date Notes Nystatin 999479 UNIT/GM 1 application Ex ternally Twice a day; Duration: 14 days 10/09/2024 Treatment Notes Assessment Notes Depression with anxiety Well controlled on current regimen Buproprion likely the cause of dreams, but will change second dose of buspar to 3pm to see if dreams go away. If not recommend decreasing buproprion to 150mg No other changes made today Vitamin D deficiency Continue vit d supp lement Familial hypercholesterolemia Tolerating statin well Continue diet, low sat fat diet, exercise Will check fasting lipid panel next week GERD without esophagitis Well controlled on H2 vladimir, no changes Yeast dermatitis Keep clean and dry Nystatin until resolved then use deodorant in skin folds for yeast prevention Pending Test Test Name Order Date LIPID PANEL, STANDARD (7600) 10/09/2024 COMPREHENSIVE METABOLIC PANEL (57556) VITAMIN D,25-OH,TOTAL,IA (91597) 025 Next Appt Details Follow Up: 6 Months,gisselln, Jeanette son: Provider Name:Leslie Dahl, 04/09/2025 04:00:00 PM, [address], [place], [address], Progress Notes * Vinita RILEYDOB:1970 (54 yo F)Acc No.[id number]:10/09/2024 Progress Notes Patient: Keiry Vinita OROZCO Provider: Hill Matthews APRN :1970 A ge:54 Y S ex:Female Date:10/09/2024 Address:[address] [place] [address] [id number] Pcp:Lizett Rothman Subjective: * Chief Complaints: * 1 . 6 Month F/U-non fasting. 2. Yeast under her skin fold on rt side. * HPI: g en: 54-year-old female presents for routine follow-up on chronic conditions. Anxiety/depression- well controlled on current regimen. Mood is stable. Anxiety well controlled with addition of buspar. Having vivid dreams, most nights, some nightmares since it was added. O n tirzepatide from online provider, doing well with weight loss. S he is exercising. Tolerating well with no GI side effects. HLD- tolerating well. Due for fasting labs. Seasonal allergies well controlled. GERD well controlled on H2 vladimir. C/o burning, itchy rash in skin folds, chronic, improving some with OTC powder. * ROS: A LLERGY: no S cratchy throat. n o I tchy eyes. ? C ARDIOLOGY: Reviewed, No Symptoms Reported: Y es. C ONSTITUTIONAL: no L oss of appetite. n o F ever. D ERMATOLOGY: Rash y es. G ASTROENTEROLOGY: no N ausea. H eartburn y es, w ell controlled on H2 vladimir. n o V omiting. n o D iarrhea. n o C onstipation. n o B lood in stool. H EMATOLOGY/LYMPH: no S wollen glands. n o E asy bruising. ? N EUROLOGY: no H eadache. n o T ingling numbness. ? P SYCHOLOGY: Positive for a nxiety, depression, insomnia- well controlled on current regimen. U ROLOGY: no D ifficulty urinating. n o B lood in urine. * Medical History: H ypercholestrolemia. * Surgical History: g astric bypass , tonsillectomy , lt shoulder , hernia repair , rt wrist . * Hospitalization/Major Diagno stic Procedure: D enies Past Hospitalization. * Family History: F ather: , heart disease, lung cancer. M other: alive, diabetes. P aternal Grand Father: , heart disease. P aternal Grand Mother: , diabetes, heart disease. Maternal Grand Father: . M aternal Grand Mother: , Alzheimer's dementia, heart disease. P aternal uncle: alive, drug abuse. P aternal aunt: alive. M aternal uncle: alive, heart disease, diabetes. S iblings: alive, hypertension. C maritzaen: alive. 2 brother(s) , 1 sister(s) . 1 son(s) , 1 daughter(s) . . * Social History: S moking A re you a: f ormer smoker. R ecreational drug use: no. Exercise: no. Home smoke detector use: yes. Caffeine: yes, frequency: daily. Living Will: No. Alcohol: socially. Sexually active: yes. Travel outside [place]: no. 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 * Medications: T aking Tylenol Extra Strength 500 MG Tablet 2 tab(s) orally every 6 hours , Taking MiraLax - POWDER FOR RECONSTITUTION DIRECTED ORALLY ONCE A DAY , Taking Tirzepatide 12.5 MG/0.5 ML SOLUTION 0.3 ML SUBCUTANEOUSLY ONCE A WEEK , Taking Multivitamin 1 TAB ONCE A DAY , Taking Fluticasone Propionate 50 MCG/ACT Suspension [...] orally once a day (in the evening) , Taking busPIRone HCl 5 MG Tablet 1 tablet Orally Twice a day , Taking Doxepin HCl 100 MG Capsule 1 cap(s) orally once a day (at bedtime) , Taking buPROPion HCl ER (XL) 300 MG Tablet Extended Release 24 Hour 1 tab(s) orally every 24 hours , Taking Rosuvastatin Calcium 10 MG Tablet Take 1 tablet by mouth once daily , Medication List reviewed and reconciled with the patient * Allergies: N .K.D.A. Objective: * Vitals: N urse: jl, Pain: 0, Temp: 97.6, RR: 18, HR: 92, BP: 102/76, Ht: 5ft 2in, Wt: 158.6, BMI:29.01. * Examination: P sychology: General Appearance: N AD, pleasant. Grooming : a dequate. Eye contact : n ormal. Mood : p leasant. Heart: R egular Rate and Rhythm, no murmur, rubs or gallops. Lungs: L CTAB, No wheezes, crackles or rhonchi, Good air movement,. Abdomen: S oft, NTND, BSNA, No organomegaly or peritoneal signs.. Neurologic Exam: n o focal signs,, normal sensation, strength, tone and reflexes,, Alert and oriented x 3. Y east rash under panniculus. Assessment: * Assessment: 1. D epression with anxiety - F41.8 (Primary) 2 . V itamin D deficiency - E55.9 3 . P TSD (post-traumatic stress disorder) - F43.10 4 .?Familial hypercholesterolemia - E78.01 5 . G ERD without esophagitis - K21.9 6. Y east dermatitis - B37.2 Plan: * Treatment: 2. V itamin D deficiency L AB: VITAMIN D,25-OH,TOTAL,IA (94681) Notes: Continue vit d supplement 3. F amilial hypercholesterolemia L AB: LIPID PANEL, STANDARD (7600) L AB: COMPREHENSIVE METABOLIC PANEL (59730) Notes: Tolerating statin well Continue diet, low sat fat diet, exercise Will check fasting lipid panel next week 4. G ERD without esophagitis Notes: Well controlled on H2 vladimir, no changes 5. Y east dermatitis Start Nystatin Cream, 815469 UNIT/GM, 1 application, Externally, Twice a day, 14 days, 1, Refills 1. Notes: Keep clean and dry Nystatin until resolved then use deodorant in skin folds for yeast prevention * Follow Up: 6 Months,prn * * Sign off status: Completed true * Provider: Hill Matthews APRN Date: 10/09/2024 Generated for Ramonita morris/Shantell/Tiffaniitting on: 10/14/2024 10:00 AM EDT History and Physical Notes * HPI (History of Present Illness) Category Sub-Category Detail Notes Category Not es gen 54-year-old fem rebecca presents for routine follow-up on chronic conditions. Anxiety/depression- well controlled on current regimen. Mood is stable. Anxiety well controlled with addition of buspar. Having vivid dreams, most nights, some nightmares since it was added. On tirzepatide from online provider, doing well with weight loss. She is exercising. Tolerating well with no GI side effects. HLD- tolerating well. Due for fasting labs. Seasonal allergies well controlled. GERD well controlled on H2 vladimir. C/o burning, itchy rash in skin folds, chronic, improving some with OTC powder Examination Category Sub-Category Detail Notes Category Not es Psychology Heart: Regular Rate and Rhythm, no murmur, rubs or gallops Yeast rash under panniculus Lungs: LCTAB, No wheezes, c rackles or rhonchi, Good air movement, Abdomen: Soft, NTND, BSNA, No organomegaly or peritoneal signs. General Appearance: NAD, pleasant Neurologic Exam: no focal signs,, nor mal sensation, strength, tone and reflexes,, Alert and oriented x 3 Grooming : adequate Eye contact : normal Mood : pleasant
--- OUTSIDE RECORDS SUMMARY | 2024-10-14 10:00 | XMS_ITS | Patient Health Record ---
Author Organization [facility] Address [address] [place] [address] Care Team Providers Care Showroom Manager Name Role Phone Lorna, Lizett Primary Care Provider LIZETT ROTHMAN Unavailable Unavaila Dewey Scott Unavailable [phone] Leslie Matthews Unavailable [phone] Migration, Provider Unavailable Unavailable Allergies No Known Allergies Results Component Value Reference Range Notes VITAMIN D,25-OH,TOTAL,IA (17 306) Reviewed date:04/15/2024 01:08:30 PM Interpretation: Performing Lab:[facility] [facility] Philip Rosales Notes/Report: NON-FASTING; NON-FASTING; NON-FASTING; NON-FASTING; NON-FAST FASTING:YES FASTING: YES VITAMIN D,25-OH,TOTAL,IA 73 30-100 ng/mL Vitamin D Status 25-OH Vitamin D: Deficiency: <20 ng/mL Insufficiency: 20 - 29 ng/mL Optimal: > or = 30 ng/mL For 25-OH Vitamin D testing on patients on D2-supplementation and patients for whom quantitation of D2 and D3 fractions is required, the QuestAssureD(TM) 25-OH VIT D, (D2,D3), LC/MS/MS is recommended: order code 83376 (patients >2yrs). See Note 1 Note 1 For additional information, please refer to http://education.GOintegro.Bday/faq/SNW998 (This link is being provided for informational/ educational purposes only.) VITAMIN B12 (927) Reviewed date:04/15/2024 01:08:30 PM Interpretation: Performing Lab:SYD [facility] [address], [place] Philip Rosales Notes/Report: NON-FASTING; NON-FASTING; NON-FASTING; NON-FASTING; NON-FAST FASTING:YES FASTING: YES VITAMIN B12 >2000 200-1100 pg/mL HEMOGLOBIN A1c (496) Reviewed date:04/15/2024 01:08:30 PM Interpretation: Performing Lab:[facility] [address], [place] Philip Rosales Notes/Report: NON-FASTING; NON-FASTING; NON-FASTING; NON-FASTING; NON-FAST FASTING:YES FASTING: YES HEMOGLOBIN A1c 5.2 <5.7 % of total Hgb For the purpose of screening for the presence of diabetes: <5.7% Consistent with the absence of diabetes 5.7-6.4% Consistent with increased risk for diabetes (prediabetes) > or =6.5% Consistent with diabetes This assay result is consistent with a decreased risk of diabetes. Currently, no consensus exists regarding use of hemoglobin A1c for diagnosis of diabetes in children. According to [place] Diabetes Association (ADA) guidelines, hemoglobin A1c <7.0% represents optimal control in non- diabetic patients. Different metrics may apply to specific patient populations. Standards of Medical Care in Diabetes(ADA). CBC (INCLUDES DIFF/PLT) (639 9) Reviewed date:04/15/2024 01:08:30 PM Interpretation: Performing Lab:SYD [facility] [address], [place] Philip Rosales Notes/Report: NON-FASTING; NON-FASTING; NON-FASTING; NON-FASTING; NON-FAST FASTING:YES FASTING: YES WHITE BLOOD CELL COUNT 4.3 3.8-10.8 Thousand/ uL RED BLOOD CELL COUNT 4.68 3.80-5.10 Million/uL HEMOGLOBIN 14.6 11.7-15.5 g/dL HEMATOCRIT 44.4 35.0-45.0 % MCV 94.9 80.0-100.0 fL MCH 31.2 27.0-33.0 pg MCHC 32.9 32.0-36.0 g/dL For adults, a slight decrease in the calculated MCHC value (in the range of 30 to 32 g/dL) is most likely not clinically significant; however, it should be interpreted with caution in correlation with other red cell parameters and the patient's clinical condition. RDW 12.8 11.0-15.0 % PLATELET COUNT 193 140-400 Thousand/uL MPV 12.5 7.5-12.5 fL ABSOLUTE NEUTROPHILS 2696 9415-1031 cells/uL ABSOLUTE LYMPHOCYTES 3186 201-9974 cells/uL ABSOLUTE MONOCYTES 323 200-950 cells/uL ABSOLUTE EOSINOPHILS 82 15-500 cells/uL ABSOLUTE BASOPHILS 22 0-200 cells/uL NEUTROPHILS 62.7 LYMPHOCYTES 27.4 MONOCYTES 7.5 EOSINOPHILS 1.9 BASOPHILS 0.5 COMPREHENSIVE METABOLIC PANE L (30775) Reviewed date:04/15/2024 01:08:30 PM Interpretation: Performing Lab:SYD, [facility] [address] [facility]fGE[address] Philip Rosales Notes/Report: NON-FASTING; NON-FASTING; NON-FASTING; NON-FASTING; NON-FAST FASTING:YES FASTING: YES GLUCOSE 78 65-99 mg/dL Fasting reference interval UREA NITROGEN (BUN) 17 7-25 mg/dL CREATININE 0.88 0.50-1.03 mg/dL EGFR 79 > OR = 60 mL/min/1.73m2 BUN/CREATININE RATIO SEE NOTE: 6-22 (calc) Not Reported: BUN and Creatinine are within reference range. SODIUM 142 135-146 mmol/L POTASSIUM 4.5 3.5-5.3 mmol/L CHLORIDE 105 98-110 mmol/L CARBON DIOXIDE 30 20-32 mmol/L CALCIUM 9.9 8.6-10.4 mg/dL PROTEIN, TOTAL 7.0 6.1-8.1 g/dL ALBUMIN 4.4 3.6-5.1 g/dL GLOBULIN 2.6 1.9-3.7 g/dL (calc) ALBUMIN/GLOBULIN RATIO 1.7 1.0-2.5 (calc) BILIRUBIN, TOTAL 0.4 0.2-1.2 mg/dL ALKALINE PHOSPHATASE 80 37-153 U/L AST 19 10-35 U/L ALT 17 6-29 U/L LIPID PANEL, STANDARD (7600) Reviewed date:04/15/2024 01:08:30 PM Interpretation: Performing Lab:[facility] [facility] Philip Rosales Notes/Report: NON-FASTING; NON-FASTING; NON-FASTING; NON-FASTING; NON-FAST FASTING:YES FASTING: YES CHOLESTEROL, TOTAL 146 <200 mg/dL HDL CHOLESTEROL 46 > OR = 50 mg/dL TRIGLYCERIDES 105 <150 mg/dL LDL-CHOLESTEROL 80 Reference range: <100 Desirable range <100 mg/dL for primary prevention; <70 mg/dL for patients with CHD or diabetic patients with > or = 2 CHD risk factors. LDL-C is now calculated using the Rolando calculation, which is a validated novel method providing better accuracy than the Friedewald equation in the estimation of LDL-C. Kaleb TALLEY et al. CALVIN. 2013;310(19): 6799-3221 (http://education.barcoo/faq/TCG994) CHOL/HDLC RATIO 3.2 <5.0 (calc) NON HDL CHOLESTEROL 100 <130 mg/dL (calc) For patients with diabetes plus 1 major ASCVD risk factor, treating to a non-HDL-C goal of <100 mg/dL (LDL-C of <70 mg/dL) is considered a therapeutic option. CULTURE, AEROBIC AND ANAEROB IC W/GRAM STAIN (4446) Reviewed date:05/30/2024 11:20:42 AM Interpretation: Performing Lab:[facility] M[address] [facility] CenterYvqtYH[address] Philip Rosales Notes/Report: NON-FASTING CULTURE, ANAEROBIC BACTERIA W/GRAM STAIN SEE NOTE CULTURE, ANAEROBIC BACTERIA W/GRAM STAIN Micro Number: [id number] Test Status: Final Specimen Source: Wound (site not specified) Specimen Quality: Adequate Gram Stain: Few Gram positive cocci Result: Heavy growth of Finegoldia magna CULTURE, AEROBIC BACTERIA SEE NOTE CULTURE, AEROBIC BACTERIA Micro Number: [id number] Test Status: Final Specimen Source: Wound (site not specified) Specimen Quality: Adequate Result: Growth of skin corazon (note: Growth does not include S. aureus, beta-hemolytic Streptococci or P. aeruginosa). Reason For Referral [facility] Diagnosis 1 Visit for screening mammogram (Z12.31) Referral Organization [facility] [place] Referring Provider First Name Leslie Referring Provider Last Name Cassie Referring Provider Speciality Family Chanell moreira Referred Organization [facility] Referred Address [address] [facility] [address], [place],[address],[place] Referred Provider Specialty Diagnostic R adiology General Notes Belkis Barriga 2024 10:26:09 AM >sent to [facility] to schedule, Belkis Barriga 04/18/2024 04:36:51 PM >checked with [facility] Referral Priority Routine Medications Medication SIG (Take, Route, Frequency, Duration) Notes Start Date End Date Status Cyclobenzaprine HCl 10 MG 1 tablet at be dtime as needed Orally Once a day; Duration: 30 days 10/10/2024 Active Doxepin HCl 100 MG 1 cap(s) orally once a day (at bedtime); Duration: 90 days Active MiraLax - DIRECTED ORALLY O NCE A DAY Active Rosuvastatin Calcium 10 MG Take 1 tablet by mouth once daily; Duration: 90 Active Tylenol Extra Strength 500 MG 2 tab(s) orally every 6 hours Active buPROPion HCl ER (XL) 300 MG 1 tab(s) orally every 24 hours; Duration: 90 days Active Famotidine 20 MG 1 tab(s) orally 2 ti mes a day; Duration: 90 days Active Sertraline HCl 100 MG 1 tab(s) orally on ce a day; Duration: 90 days Active busPIRone HCl 5 MG 1 tablet Orally Twic e a day; Duration: 30 days 07/28/2024 Active Levocetirizine Dihydrochloride 5 MG 1 tab(s) orally once a day (in the evening); Duration: 30 days Active Nystatin 951628 UNIT/GM 1 application Ex ternally Twice a day; Duration: 14 days 10/09/2024 Active Multivitamin 1 TAB ONCE A DAY Active Tirzepatide 12.5 MG/0.5 ML 0.3 ML SUBCUT ANEOUSLY ONCE A WEEK Active Vitamin D3 25 MCG 1 tab(s) orally ever y other day Active Fluticasone Propionate 50 MCG/ACT 1 spray(s) in each nostril once a day; Duration: 30 days 01/18/2023 Active Immunizations Vaccine Route Administration Date Status Comme nts Flublok IM Intramuscular 04/14/2024 Administered FLUZONE 6MO - OLDER IM Intramuscular 02/08/2023 Administer ed Social History Tobacco Use: Social History Observation Description Date Details (start date - stop date) Former Smoker NA - NA Smoking: Question Answer Notes Are you a: former smoker Problems Problem Type SNOMED Code ICD Code Onset Dates Problem Status W/U Status Risk Notes Problem Mixed anxiety and depressive disorder (624567852) Depression with anxiety (F41.8) Active confirmed Problem Vitamin D deficiency (96243167) Vitamin D deficiency (E55.9) Active confirmed Problem Gastroesophageal reflux disease (906042642) GERD without esophagitis (K21.9) Active confirmed Problem Seasonal allergy (213016657) Seasonal allergies (J30.2) Active confirmed Problem Body mass index 40+ - morbidly obese (422130059) BMI 40.0-44.9, adult (Z68.41) Active confirmed Problem Chronic pain (06583878) Other chronic pain (G89.29) Active confirmed Problem Obese class II (193249323936549) BMI 39.0-39.9,adult (Z68.39) Active confirmed Problem Posttraumatic stress disorder (94024045) PTSD (post-traumatic stress disorder) (F43.10) Active confirmed Problem Hypoglycemia (135003268) Hypoglycemia (E16.2) Active confirmed Problem Hyperlipidemia (06093637) Other and unspecified hyperlipidemia (E78.5) Active confirmed Problem Generalized anxiety disorder (13067039) LUCILA (generalized anxiety disorder) (F41.1) Active confirmed Problem Obese class II (412901526064711) BMI 35.0-35.9,adult (Z68.35) Active confirmed Problem Morbid obesity (945307666) Severe obesity (BMI >= 40) (E66.01) Active confirmed Problem Familial hypercholesterolemia (645271465) Familial hypercholesterolemia (E78.01) Active confirmed Problem Insomnia disorder related to another mental disorder (50541183) Insomnia, psychophysiological (F51.04) Active confirmed Vital Signs Heart Rate 92 /min 10/09/2024 Temperature 97.6 degrees Fahrenheit 10/09/2024 Blood pressure diastolic 76 mm Hg 10/09/2024 Height 5ft 2in in 10/09/2024 Blood pressure systolic 102 mm Hg 10/09/2024 Weight 158.6 lbs 10/09/2024 BMI 29.01 kg/m2 10/09/2024 Encounters Encounter Location Date Provider Diagnosis [facility] [address] [facility] [address] [place] [address] 04/14/2024 Leslie McNees [facility] [address] [facility] [address] [place] [address] 06/28/2024 Provider Migration Thoracic myofascial strain, initial encounter S29.019A [facility] [address] [facility] [address] [place] [address] 10/23/2023 Leslie McNees Depression with anxi ety F41.8 ; PTSD (post-traumatic stress disorder) F43.10 and BMI 40.0-44.9, adult Z68.41 [facility] [address] [facility] [address] [place] [address] 11/13/2023 Leslie McNees Depression with anxi ety F41.8 ; PTSD (post-traumatic stress disorder) F43.10 and BMI 40.0-44.9, adult Z68.41 [facility] [address] [facility] [address] [place] [address] 12/13/2023 Leslie McNees Depression with anxi ety F41.8 and PTSD (post-traumatic stress disorder) F43.10 [facility] [address] [facility] [address] [place] [address] 01/10/2024 Leslie McNees Depression with anxi ety F41.8 and PTSD (post-traumatic stress disorder) F43.10 [facility] [place] [address] [address] 03/27/2024 Dewey Besson Cellulitis of great toe, right L03.031 ; Ingrowing nail L60.0 and Acute non-recurrent maxillary sinusitis J01.00 [facility] [place] [address] [address] 04/03/2024 Dewey Besson Ingrowing nail with infection L60.0 [facility] [address] [place] [address] 04/08/2024 Leslieyesica Matthews Depression with anxi ety F41.8 ; Routine medical exam Z00.00 ; PTSD (post-traumatic stress disorder) F43.10 ; Insomnia, psychophysiological F51.04 ; Vitamin D deficiency E55.9 ; Familial hypercholesterolemia E78.01 ; Seasonal allergies J30.2 ; Chronic GERD without esophagitis K21.9 ; BMI 35.0-35.9,adult Z68.35 ; Visit for screening mammogram Z12.31 ; B12 deficiency E53.8 and Prediabetes R73.03 [facility] [address] [facility] [address] [place] [address] 04/14/2024 Leslie Cassie Immunization(s) administered Z23 [facility] [address] [place] [address] 05/19/2024 Lizett Rtohman Cellulitis of right toe L03.031 and Ingrowing nail L60.0 [facility] [address] [place] [address] 06/21/2024 Dewey Juarez Thoracic myofascial strain, initial encounter S29.019A [facility] [address] [place] [address] 07/28/2024 Lizett Rothman LUCILA (generalized anx iety disorder) F41.1 and Chronic urticaria L50.8 [facility] [address] [place] [address] 10/09/2024 Leslie Matthews Depression with anxi ety F41.8 ; Vitamin D deficiency E55.9 ; PTSD (post-traumatic stress disorder) F43.10 ; Familial hypercholesterolemia E78.01 ; GERD without esophagitis K21.9 and Yeast dermatitis B37.2 [facility] [address] [address] 11/14/2023 Leslie McNees [facility] [address] [facility] [address] [place] [address] 04/08/2024 Leslie McNees [facility] [address] [facility] [address] [place] [address] 04/08/2024 Leslie Matthews Seasonal allergies J 30.2 [facility] [address] [place], [place] [address] 04/15/2024 Lizett Rothman [facility] [address] [address] 08/13/2024 Lizett Rothman Depression with anxi ety F41.8 [facility] [address] [address] 10/10/2024 Leslie Matthews Assessments Encounter Date Diagnosis (ICD Code) Assessment Notes Treatment Notes Treatment Clinical Notes Section Notes 10/23/2023 Depression with anxi ety (ICD-10 - F41.8) Wean off Viibryd. Start sertraline for depression and PTSD. Continue counseling. Discussed rationale for pharmacotherapy , and discussed MOA of med. Discussed time course of expected improvements, and discussed side effect profile - and need for urgent evaluation if agitation or worsening mood occurs. Discussed need for f/u in office. 11/13/2023 PTSD (post-traumatic stress disorder) (ICD-10 - F43.10) 12/13/2023 Depression with anxi ety (ICD-10 - F41.8) Increase SSRI. Discussed rationale for pharmacotherapy , and discussed MOA of med. Discussed time course of expected improvements, and discussed side effect profile - and need for urgent evaluation if agitation or worsening mood occurs. Discussed need for f/u in office. 12/13/2023 PTSD (post-traumatic stress disorder) (ICD-10 - F43.10) 01/10/2024 Depression with anxi ety (ICD-10 - F41.8) Well controlled on current regimen. No changes made today. RTC in 3 months for FU or sooner if worsening mood or agitation occurs. 01/10/2024 PTSD (post-traumatic stress disorder) (ICD-10 - F43.10) 03/27/2024 Ingrowing nail (ICD- 10 - L60.0) Treat infection as above, discussed continuing soaks, discussed 1 week follow-up to resect since I do not think it is going to spontaneously extrude. She is okay with planning this procedure. 03/27/2024 Cellulitis of great toe, right (ICD-10 - L03.031) 10/23/2023 PTSD (post-traumatic stress disorder) (ICD-10 - F43.10) 11/13/2023 Depression with anxi ety (ICD-10 - F41.8) Slight improvement with change to SSRI. Has only been on 50mg dose x 1 week. Discussed expected time course of improvements. Continue counseling. Recommend to re-evaluate symptoms in 3-4 weeks if not at goal. If at goal, RTC in 3 months. Discussed s/s of worsening mood/agitation that warrant FU. 04/03/2024 Ingrowing nail with infection (ICD-10 - L60.0) Overall improving. Procedure done as noted above. Discussed finishing antibiotics, discussed appropriate way to clip toenails to try to avoid recurrence. 04/08/2024 Depression with anxi ety (ICD-10 - F41.8) Well controlled on current regimen. No changes made today 04/08/2024 Routine medical exam (ICD-10 - Z00.00) Colonoscopy UTD- report requested for review Past due for mammogram, will arrange Past due for pap, advised patient to schedule Tdap UTD Flu shot next week RTC next week for fasting labs 04/08/2024 Seasonal allergies (ICD-10 - J30.2) 04/14/2024 Immunization(s) administered (ICD-10 - Z23) 05/19/2024 Cellulitis of right toe (ICD-10 - L03.031) culture today as noted. encouraged warm soaks with epsom salt and start antibiotics pending culture. return precautions reviewed 05/19/2024 Ingrowing nail (ICD- 10 - L60.0) 06/21/2024 Thoracic myofascial strain, initial encounter (ICD-10 - S29.019A) Discussed stretching, warm compresses, low-grade muscle relaxers. Dexamethasone injection for supportive care 06/28/2024 Thoracic myofascial strain, initial encounter (ICD-10 - S29.019A) 07/28/2024 Chronic urticaria (ICD-10 - L50.8) 07/28/2024 LUCILA (generalized anxiety disorder) (ICD-10 - F41.1) Continue current regimen but with addition of buspirone 5mg BID as noted 08/13/2024 Depression with anxi ety (ICD-10 - F41.8) 10/09/2024 Depression with anxi ety (ICD-10 - [...] PTSD (post-traumatic stress disorder) (ICD-10 - F43.10) 04/08/2024 PTSD (post-traumatic stress disorder) (ICD-10 - F43.10) Doing well following extensive counseling last year and meds 11/13/2023 BMI 40.0-44.9, adult (ICD-10 - Z68.41) Weight is down 3 lbs. Diet, exercise discussed. Keep appointment with health graduation coach. 03/27/2024 Acute non-recurrent maxillary sinusitis (ICD-10 - J01.00) Cefdinir as noted, seems to be a postviral sinus infection, this should be effective for both problems 10/23/2023 BMI 40.0-44.9, adult (ICD-10 - Z68.41) Diet, exercise discussed. Keep appointment with health graduation coach 10/09/2024 Familial hypercholesterolemia (ICD-10 - E78.01) Tolerating statin well Continue diet, low sat fat diet, exercise Will check fasting lipid panel next week 04/08/2024 Insomnia, psychophysiological (ICD-10 - F51.04) Well controlled 10/09/2024 GERD without esophagitis (ICD-10 - K21.9) Well controlled on H2 vladimir, no changes 04/08/2024 Vitamin D deficiency (ICD-10 - E55.9) Will check vit d/b12 levels and treat as indicated 10/09/2024 Yeast dermatitis (ICD-10 - B37.2) Keep clean and dry Nystatin until resolved then use deodorant in skin folds for yeast prevention 04/08/2024 Familial hypercholesterolemia (ICD-10 - E78.01) Tolerating statin well with no myalgias 04/08/2024 Seasonal allergies (ICD-10 - J30.2) Well controlled 04/08/2024 Chronic GERD without esophagitis (ICD-10 - K21.9) Well controlled on PPI 04/08/2024 BMI 35.0-35.9,adult (ICD-10 - Z68.35) Weight is down around 30 lbs. Continue diet, exercise and GLP-1 04/08/2024 Visit for screening mammogram (ICD-10 - Z12.31) 04/08/2024 B12 deficiency (ICD- 10 - E53.8) 04/08/2024 Prediabetes (ICD-10 - R73.03) Except improvement given her weight loss and exercise 12/13/2023 Other Weight is down 3 lbs. Diet, exercise discussed. Keep appointment with health graduation coach. Plan Of Treatment Pending Test Test Name Order Date MRI : Shoulder, Left 06/07/2023 Mammogram : Bilateral 04/08/2024 Mammogram : Bilateral 05/01/2022 Occupational Therapy : Eval & Treatment 04/21/2023 M-Vitamin B12 01/04/2023 M-Vitamin D 25 Hydroxy 01/04/2023 CT Scan : Chest, Lung Cancer Screening 0 05/01/2022 LIPID PANEL, STANDARD (7600) 10/09/2024 COMPREHENSIVE METABOLIC PANEL (08959) VITAMIN D,25-OH,TOTAL,IA [phone]) [phone] Next Appt Details Provider Name:Leslie Dahl, 04/09/2025 04:00:00 PM, [address], [place], [address], Insurance Providers Payer Name Payer Address Payer Phone Subscriber Number Group Number Insured Name Patient Relationship to Insured Coverage Start Date Coverage End Date [facility] [employer] [address] [place] [address] [phone] [id number] [place]a Riley Self - patient is the insured Medications Administered Medication Instructions Date of Administration Dosage Notes Dexamethasone 4mg Injection 06/21/2024 4 mg Medical (General) History Medical History History ICD Code hypercholestrolemia Surgical History Surgery Date(Month/Year) gastric bypass tonsillectomy lt shoulder hernia repair rt wrist
--- OUTSIDE RECORDS SUMMARY | 2024-10-14 10:00 | XMS_ITS | Data Portability ---
[facility] Organization [facility] [place] ADMIN Address [address] [place] [id number] Care Team Providers Care Screen Making Supervisor Name Role Phone BAKARI JACOBS Primary Care Provider [phone] Assessment No assessment recorded. Plan of Treatment Reminders Order Date Submit Date Provider Last Modified By Organization Details Last Modified Time Details Appointments None recorded. Lab prealbumi n, serum 024 HANNA Casas, [address], [address], [place], [address], 4 11:14:25 thiamine, QN, blood 024 024 HANNA Casas, [address], [address], [place], [address], 4 11:14:20 CMP, serum or plasma 024 024 HANNA Casas, [address], [address], [place], [address], 4 11:14:14 selenium, quantitat beka, blood 024 024 HANNA Casas, [address], [address], [place], [address], 4 11:14:26 zinc, serum or plasma 024 024 HANNA Casas, [address], [address], [place], [address], 4 11:14:24 folate, serum 024 HANNA [facility], [address], [address], [place], [address], 4 11:14:17 vitamin D, 25-hydrox y, total, serum 024 HANNA [facility], [address], [address], [place], [address], 4 11:14:19 vitamin E, serum 024 [facility], [address], [address], [place], [address], 4 11:14:16 vitamin A (retinol) , serum 024 [facility], [address], [address], [place], [address], 4 11:14:18 TSH + free T4, serum [place] [facility], [address], [address], [place], [address], 4 11:14:11 methylmal kj, QN, serum or plasma 024 HANNA [facility], [address], [address], [place], [address], 4 11:14:21 copper, serum or plasma 024 [place] [facility], [address], [address], [place], [address], 4 11:14:22 CBC w/ auto diff 024 04/26/2 024 HANNA [facility], [address], [address], [place], [address], 4 11:14:13 iron + TIBC + ferritin, serum 024 024 HANNA [facility], [address], [address], [place], [address], 4 11:14:10 iron + TIBC + ferritin, serum 022 [email or web address] [facility], [address], [address], [place], [address], 2 12:52:02 HbA1c (hemoglob in A1c), blood [email or web address] [facility], [address], [address], [place], [address], 2 12:52:02 CMP, serum or plasma [email or web address] [facility], [address], [address], [place], [address], 2 12:52:02 CBC w/ auto diff 022 [email or web address] [facility], [address], [address], [place], [address], 2 12:52:03 vitamin B12 + folate, serum or blood 022 [email or web address] [facility], [address], [address], [place], [address], 2 12:52:03 lipid panel, serum 022 [email or web address] [facility], [address], [address], [place], [address], 2 12:52:03 Referral None recorded. Procedures None recorded. Surgeries None recorded. Imaging None recorded. Medication Orders None recorded. Patient Targets Encounter Date Encounter Id Patient Goals Patient Target Last Modified By Organization Details Last Modified Time 07/20/2023 [id number] 1. Eat 4 meals a day 2. Start tracking kcal, pro, carbs, fat, and fiber 3. Review manual for meal and snack ideas 4. Start walking 3 days a week for 20 minutes [email or web address] Not available 07/20/2023 15:08:42 Patient InstructionsNo instructions recorded. Reason for Referral None Reported. Results Created Date Observation Date Name Description Value Unit Range Abnormal Flag Note LastModifiedBy Organization Detail LastModifiedTime 07/20/19 24 07/21/2023 FE+TI BC+FE R iron bind.cap.(TI BC) 302 ug/dL 250-45 0 Not Available [facility] ([facility]) [address] [place], [address], 07/27/2023 11:14:10 07/20/19 24 07/21/2023 FE+TI BC+FE R UIBC 256 ug/dL 131-42 5 Not Available [facility] ([facility]) [address] [facility] [address], [place], [address], 07/27/2023 11:14:10 07/20/19 24 07/21/2023 FE+TI BC+FE R iron 46 ug/dL 27-159 Not Available [facility] ([facility]) [address] [place], [address], 07/27/2023 11:14:10 07/20/19 24 07/21/2023 FE+TI BC+FE R iron saturation 15 % 15-55 Not Available [facility] ([facility]) [address] [place], [address], 07/27/2023 11:14:10 07/20/19 24 07/21/2023 FE+TI BC+FE R ferritin 484 NG/mL 15-150 above high normal Not Available [facility] ([facility]) [address] [place], [address], 07/27/2023 11:14:10 07/20/19 24 07/21/2023 TSH+F REE T4 TSH 1.370 uIU/m L 0.450- 4.500 Not Available [facility] ([facility]) [address] [facility] [address] [facility], [place], [address], 07/27/2023 11:14:11 07/20/19 24 07/21/2023 TSH+F REE T4 T4,free(dire ct) 0.84 NG/dL 0.82-1 .77 Not Available [facility] ([facility]) [address] [facility] [address], [place], [address], 07/27/2023 11:14:11 07/20/19 24 07/21/2023 CBC WITH DIFFE RENTI AL/PL ATELE T WBC 4.9 x10e3 /uL 3.4-10 .8 Not Available [facility] ([facility]) [address] [place], [address], 07/27/2023 11:14:12 07/20/19 24 07/21/2023 CBC WITH DIFFE RENTI AL/PL ATELE T RBC 4.90 x10e6 /uL 3.77-5 .28 Not Available [facility] ([facility]) [address] [place], [address], 07/27/2023 11:14:12 07/20/19 24 07/21/2023 CBC WITH DIFFE RENTI AL/PL ATELE T hemoglobin 15.1 g/dL 11.1-1 5.9 Not Available [facility] ([facility]) [address] [place], [address], 07/27/2023 11:14:12 07/20/19 24 07/21/2023 CBC WITH DIFFE RENTI AL/PL ATELE T hematocrit 46.6 % 34.0-4 6.6 Not Available [facility] ([facility]) [address] [facility] [address] [facility], [place], [address], 07/27/2023 11:14:12 07/20/19 24 07/21/2023 CBC WITH DIFFE RENTI AL/PL ATELE T MCV 95 fL 79-97 Not Available [facility] ([facility]) [address] [facility] [address], [place], [address], 07/27/2023 11:14:12 07/20/19 24 07/21/2023 CBC WITH DIFFE RENTI AL/PL ATELE T MCH 30.8 pg 26.6-3 3.0 Not Available [facility] ([facility]) [address] [facility] [address] [facility], [place], [address], 07/27/2023 11:14:12 07/20/19 24 07/21/2023 CBC WITH DIFFE RENTI AL/PL ATELE T MCHC 32.4 g/dL 31.5-3 5.7 Not Available [facility] ([facility]) [address] [facility] [address] [facility], [place], [address], 07/27/2023 11:14:12 07/20/19 24 07/21/2023 CBC WITH DIFFE RENTI AL/PL ATELE T RDW 12.4 % 11.7-1 5.4 Not Available [facility] ([facility]) [address] [facility] [address], [place], [address], 07/27/2023 11:14:12 07/20/19 24 07/21/2023 CBC WITH DIFFE RENTI AL/PL ATELE T platelets 174 x10e3 /uL 150-45 0 Not Available [facility] ([facility]) [address] [facility] [address], [place], [address], 07/27/2023 11:14:12 07/20/19 24 07/21/2023 CBC WITH DIFFE RENTI AL/PL ATELE T neutrophils 61 % not estab. Not Available [facility] ([facility]) [address] [facility] [address] [facility], [place], [address], 07/27/2023 11:14:12 07/20/19 24 07/21/2023 CBC WITH DIFFE RENTI AL/PL ATELE T lymphs 29 % not estab. Not Available [facility] ([facility]) [address] [facility] [address], [place], [address], 07/27/2023 11:14:12 07/20/19 24 07/21/2023 CBC WITH DIFFE RENTI AL/PL ATELE T monocytes 9 % not estab. Not Available [facility] ([facility]) [address] [facility] [address], [place], [address], 07/27/2023 11:14:12 07/20/19 24 07/21/2023 CBC WITH DIFFE RENTI AL/PL ATELE T eos 1 % not estab. Not Available [facility] ([facility]) [address] [facility] [address], [place], [address], 07/27/2023 11:14:12 07/20/19 24 07/21/2023 CBC WITH DIFFE RENTI AL/PL ATELE T basos 0 % not estab. Not Available [facility] ([facility]) [address] [facility] [address] [facility], [place], [address], 07/27/2023 11:14:12 07/20/19 24 07/21/2023 CBC WITH DIFFE RENTI AL/PL ATELE T immature cells BLOOD DONOR RECRUITER SUPERVISOR Not Available [facility] ([facility]) [address] [facility] [address] [place], [place], [address], 07/27/2023 11:14:12 07/20/19 24 07/21/2023 CBC WITH DIFFE RENTI AL/PL ATELE T neutrophils (absolute) 2.9 x10e3 /uL 1.4-7. 0 Not Available [facility] ([facility]) [address] [facility] [address] [facility], [place], [address], 07/27/2023 11:14:12 07/20/19 24 07/21/2023 CBC WITH DIFFE RENTI AL/PL ATELE T lymphs (absolute) 1.4 x10e3 /uL 0.7-3. 1 Not Available [facility] ([place] [facility]) [address] [facility] [address], [place], [address], 07/27/2023 11:14:12 07/20/19 24 07/21/2023 CBC WITH DIFFE RENTI AL/PL ATELE T monocytes(ab solute) 0.4 x10e3 /uL 0.1-0. 9 Not Available [facility] ([facility]) [address] [facility] [address] [facility], [place], [address], 07/27/2023 11:14:12 07/20/19 24 07/21/2023 CBC WITH DIFFE RENTI AL/PL ATELE T eos (absolute) 0.1 x10e3 /uL 0.0-0. 4 Not Available [facility] ([facility]) [address] [facility] [address] [facility], [place], [address], 07/27/2023 11:14:12 07/20/19 24 07/21/2023 CBC WITH DIFFE RENTI AL/PL ATELE T baso (absolute) 0.0 x10e3 /uL 0.0-0. 2 Not Available [facility] ([facility]) [address] [facility] [address] [facility], [place], [address], 07/27/2023 11:14:12 07/20/19 24 07/21/2023 CBC WITH DIFFE RENTI AL/PL ATELE T immature granulocytes 0 % not estab. Not Available [facility] ([facility]) [address] [facility] [address] [facility], [place], [address], 07/27/2023 11:14:12 07/20/19 24 07/21/2023 CBC WITH DIFFE RENTI AL/PL ATELE T immature grans (abs) 0.0 x10e3 /uL 0.0-0. 1 Not Available [facility] ([facility]) [address], [place], [address], 07/27/2023 11:14:12 07/20/19 24 07/21/2023 CBC WITH DIFFE RENTI AL/PL ATELE T NRBC BLOOD DONOR RECRUITER SUPERVISOR Not Available [facility] ([facility]) [address], [place], [address], 07/27/2023 11:14:12 07/20/19 24 07/21/2023 CBC WITH DIFFE RENTI AL/PL ATELE T hematology comments: BLOOD DONOR RECRUITER SUPERVISOR Not Available [facility] ([facility]) [address], [place], [address], 07/27/2023 11:14:12 07/20/19 24 07/21/2023 COMP. METAB OLIC PANEL (14) glucose 83 mg/dL 70-99 Not Available [facility] ([facility]) [address], [place], [address], 07/27/2023 11:14:14 07/20/19 24 07/21/2023 COMP. METAB OLIC PANEL (14) BUN 19 mg/dL 6-24 Not Available [facility] ([facility]) [address], [place], [address], 07/27/2023 11:14:14 07/20/19 24 07/21/2023 COMP. METAB OLIC PANEL (14) creatinine 0.75 mg/dL 0.57-1 .00 Not Available [facility] ([facility]) [address], [place], [address], 07/27/2023 11:14:14 07/20/19 24 07/21/2023 COMP. METAB OLIC PANEL (14) eGFR 96 mL/mi n/1.7 3 >59 Not Available [facility] ([facility]) [address], [place], [address], 07/27/2023 11:14:14 07/20/19 24 07/21/2023 COMP. METAB OLIC PANEL (14) BUN/creatini ne ratio 25 9-23 above high normal Not Available [facility] ([facility]) [address] [place], [address], 07/27/2023 11:14:14 07/20/19 24 07/21/2023 COMP. METAB OLIC PANEL (14) sodium 139 mmol/ L 134-14 4 Not Available [facility] ([facility]) [address] [place], [address], 07/27/2023 11:14:14 07/20/19 24 07/21/2023 COMP. METAB OLIC PANEL (14) potassium 4.0 mmol/ L 3.5-5. 2 Not Available [facility] ([facility]) [address] [place], [address], 07/27/2023 11:14:14 07/20/19 24 07/21/2023 COMP. METAB OLIC PANEL (14) chloride 99 mmol/ L 96-106 Not Available [facility] ([facility]) [address] [place], [address], 07/27/2023 11:14:14 07/20/19 24 07/21/2023 COMP. METAB OLIC PANEL (14) carbon dioxide, total 27 mmol/ L 20-29 Not Available [facility] ([facility]) [address] [place], [address], 07/27/2023 11:14:14 07/20/19 24 07/21/2023 COMP. METAB OLIC PANEL (14) calcium 10.1 mg/dL 8.7-10 .2 Not Available [facility] ([facility]) [address] [place], [address], 07/27/2023 11:14:14 07/20/19 24 07/21/2023 COMP. METAB OLIC PANEL (14) protein, total 7.3 g/dL 6.0-8. 5 Not Available [facility] ([facility]) [address] [facility] [address] [facility], [place], [address], 07/27/2023 11:14:14 07/20/19 24 07/21/2023 COMP. METAB OLIC PANEL (14) albumin 4.6 g/dL 3.8-4. 9 Not Available [facility] ([facility]) [address] [facility] [place], [address], 07/27/2023 11:14:14 07/20/19 24 07/21/2023 COMP. METAB OLIC PANEL (14) globulin, total 2.7 g/dL 1.5-4. 5 Not Available [facility] ([facility]) [address] [facility] [place], [address], 07/27/2023 11:14:14 07/20/19 24 07/21/2023 COMP. METAB OLIC PANEL (14) A/G ratio 1.7 1.2-2. 2 Not Available [facility] ([facility]) [address] [facility] [place], [address], 07/27/2023 11:14:14 07/20/19 24 07/21/2023 COMP. METAB OLIC PANEL (14) bilirubin, total 0.3 mg/dL 0.0-1. 2 Not Available [facility] ([facility]) [address] [place], [address], 07/27/2023 11:14:14 07/20/19 24 07/21/2023 COMP. METAB OLIC PANEL (14) alkaline phosphatase 89 IU/L 44-121 Not Available [facility] ([facility]) [address] [place], [address], 07/27/2023 11:14:14 07/20/19 24 07/21/2023 COMP. METAB OLIC PANEL (14) AST (SGOT) 31 IU/L 0-40 Not Available [facility] ([facility] [address] [facility] [place], [address], 07/27/2023 11:14:14 07/20/19 24 07/21/2023 COMP. METAB OLIC PANEL (14) ALT (SGPT) 31 IU/L 0-32 Not Available [facility] ([facility]) [address] [facility] [address], [place], [address], 07/27/2023 11:14:14 07/20/19 24 07/24/2023 VITAM IN E vitamin E(alpha tocopherol) 15.4 mg/L 7.0-25 .1 Not Available [facility] ([facility]) [address] [facility] [address] [facility], [place], [address], 07/27/2023 11:14:16 07/20/19 24 07/24/2023 VITAM IN E vitamin E(gamma tocopherol) 0.5 mg/L 0.5-5. 5 Refer ence inter vals for alpha and gamma -toco phero l deter mined from [facility] and Nutri tion Exami natio n Surve y, 2004- 2005. Indiv idual s with alpha -toco phero l level s less than 5.0 mg/L are consi dered vitam in E defic ient. Not Available [facility] ([facility]) [address] [facility] [address] [facility], [place], [address], 07/27/2023 11:14:16 07/20/19 24 07/21/2023 FOLAT E (FOLI C ACID) , SERUM folate (folic acid), serum >20.0 NG/mL >3.0 A serum folat e elsa ntrat ion of less than 3.1 ng/mL is consi dered to repre sent clini fortino defic iency . Not Available [facility] ([facility]) [address] [facility] [address] [facility], [place], [address], 07/27/2023 11:14:17 07/20/19 24 07/24/2023 VITAM IN A, SERUM vitamin A 64.8 ug/dL 20.1-6 2.0 above high normal Refer ence inter vals for vitam in A deter mined from [facility] inter nal studi es. Indiv idual s with vitam in A less than 20 ug/dL are consi dered vitam in A defic ient and those with serum elsa ntrat ions less than 10 ug/dL are consi dered sever zeny defic ient. This test was devel oped and its perfo rmanc e janis cteri stics deter mined by [facility]. It has not been clear ed or appro malena by the Food and Drug Admin istra tion. Not Available [facility] ([facility]) [address] [facility], [place], [address], 07/27/2023 11:14:18 07/20/19 24 07/21/2023 VITAM IN D, 25-HY DROXY vitamin D, 25-hydroxy 42.4 NG/mL 30.0-1 00.0 Vitam in D defic iency has been defin ed by the Insti tute of Medic ine and an Endoc rine Socie ty pract ice guide line as a level of serum 25-OH vitam in D less than 20 ng/mL (1,2) . The Endoc rine Socie ty went on to furth er defin e vitam in D insuf ficie ncy as a level betwe en 21 and 29 ng/mL (2). 1. IOM (Inst itute of Medic ine). 2009. Dieta ry refer ence intak es for calci um and D. Jennifer ayoub [place]: The [facility]al [facility] Press . 2. Praveena aguero MF, Jayesh arreaga [place], Nichelle off-F errar i CRENSHAW, et al. Evalu ation , treat ment, and preve ntion of vitam in D defic iency : an Endoc rine Socie ty clini fortino pract ice guide line. JCEM. 2010; 96(7) :1911 -30. Not Available [facility] ([facility]) [address] [facility] [address] [facility], [place], [address], 07/27/2023 11:14:19 07/20/19 24 07/25/2023 VITAM IN B1 (THIA MINE) , BLOOD vit. B1, whole blood 259.1 nmol/ L 66.5-2 00.0 above high normal Not Available [facility] ([facility]) [address] [facility], [place], [address], 07/27/2023 11:14:20 07/20/19 24 07/27/2023 METHY LMALO ROBERTH ACID, SERUM methylmaloni c acid, serum 188 nmol/ L 0-378 Not Available [facility] ([facility]) [address] [facility], [place], [address], 07/27/2023 11:14:21 07/20/19 24 07/24/2023 COPPE R, SERUM OR PLASM A copper, serum or plasma 101 ug/dL 80-158 Detec tion Limit = 5 Not Available [facility] ([facility]) [address] [place], [address], 07/27/2023 11:14:22 07/20/19 24 07/24/2023 ZINC, PLASM A OR SERUM zinc, plasma or serum 93 ug/dL 44-115 Detec tion Limit = 5 Not Available [facility] ([facility]) [address] [place], [address], 07/27/2023 11:14:23 07/20/19 24 07/21/2023 PREAL BUMIN prealbumin 31 mg/dL 10-36 Not Available [facility] ([facility]) [address] [place], [address], 07/27/2023 11:14:25 07/20/19 24 07/26/2023 SELEN IUM, BLOOD selenium, blood 217 ug/L 100-34 0 Detec tion Limit = 10 Not Available [facility] ([facility]) [address] [place], [address], 07/27/2023 11:14:26 07/26/19 24 07/27/2023 LIPID PANEL cholesterol, total 144 mg/dL 100-19 9 Not Available [facility] ([facility]) [address] [place], [address], 07/27/2023 06:37:38 07/26/19 24 07/27/2023 LIPID PANEL triglyceride s 102 mg/dL 0-149 Not Available [facility] ([facility]) [address] [place], [address], 07/27/2023 06:37:38 07/26/19 24 07/27/2023 LIPID PANEL HDL cholesterol 51 mg/dL >39 Not Available [facility] ([facility]) [address] [place], [address], 07/27/2023 06:37:38 07/26/19 24 07/27/2023 LIPID PANEL VLDL cholesterol fortino 19 mg/dL 5-40 Not Available [facility] ([facility]) [address] [place], [address], 07/27/2023 06:37:38 07/26/19 24 07/27/2023 LIPID PANEL LDL chol calc ([facility]) 74 mg/dL 0-99 Not Available [facility] ([facility]) [address] [place], [address], 07/27/2023 06:37:38 07/26/19 24 07/27/2023 LIPID PANEL comment: BLOOD DONOR RECRUITER SUPERVISOR Not Available [facility] ([facility]) [address] [place], [address], 07/27/2023 06:37:38 07/26/19 24 07/27/2023 HEMOG LOBIN A1C hemoglobin A1C 5.5 % 4.8-5. 6 Predi abete s: 5.7 - 6.4 Diabe cayetano: >6.4 Glyce dave contr ol for adult s with diabe cayetano: <7.0 Not Available [facility] ([facility]) [address] [place], [address], 07/27/2023 06:37:39 12/03/19 22 MAMMO , scree sveta, bilat eral No observ ation record ed. [email or web address] [id number] Jj Jacobs MD [address], [place], [address], 12/21/2021 05:59:02 Result Notes None recorded. Problems Name Problem SNOMED Code Status Onset Date Resolution Date Notes Provider Name and Address Organization Details Recorded Time History of bariatric surgical procedure 989947050 Active Jackie Downs null, [place] - [facility] & [place] 2 18:28:43 Patient encounter status 862290142 Active Jackie Downs null, [facility] & [place] 2 18:28:43 Acute urinary tract infection 737632923 Active Jackie Downs null, [facility] & [place] 2 18:28:43 Pain in upper limb 746838766 Active Jackie Downs null, [facility] & [place] 2 18:28:43 Numbness and tingling sensation of skin 283588455540 Active Jackie Downs null, [facility] & [place] 2 18:28:43 Benign hypertensi on 78884390 Active Jackie Downs null, [facility] [place] & [place] 2 18:28:43 Mixed hyperlipid emia 902385240 Active Jackie Downs null, [place] - [facility] & [place] 2 18:28:43 Reactive depression (situation al) 79320607 Active Jackie Downs null, [facility] [place] & [place] 2 18:28:43 Heartburn 69445069 Active Jackie Downs null, [facility] - [place] & [place] 2 18:28:43 Hypertensi ve disorder 53641275 Active Jackie Downs null, [facility] & [place] 2 18:28:43 Sciatica 05345990 Active Jackie Downs null, [place] - [facility] - [facility] & [place] 2 18:28:43 Apnea 2289643 Active Jackie Reddy null, [place] - [facility] - [facility] & [place] 2 18:28:43 Weight loss 64980987 Active Jackie Reddy null, [place] - [facility] - [facility] & [place] 2 18:28:43 Carpal tunnel syndrome 66125981 Active Jackie Reddy null, [place] - [facility] - [facility] & [place] 2 18:28:43 Regurgitat ion - mechanism Active Jackie Reddy null, [place] - [facility] - [facility] & [place] 2 18:28:43 Hiatal hernia 70140501 Active Jackie Reddy null, [place] [facility] - [facility] & [place] 2 18:28:43 History of bypass of stomach 421117951 Active Jackie Reddy null, [place] - [facility] - [facility] & [place] 2 18:28:43 Morbid obesity 792292045 Active Jackie Reddy null, [place] - [facility] - [facility] & 2 18:28:43 Ulnar nerve entrapment at wrist 911934949 Active Jackie Reddy null, [place] - [facility] - [facility] & [place] 2 18:28:43 Fatigue 20688177 Active Jackie Reddy null, [place] [facility] - [facility] & [place] 2 18:28:43 Gastroesop hageal reflux disease 270190746 Active Jackie Reddy null, [place] - [facility] - [facility] & [place] 2 18:28:43 Chronic insomnia 335275369 Active Jackie Reddy null, [place] - [facility] - [facility] & [place] 2 18:28:43 Medical examinatio ns/reports status 392253328 Active Jackie Reddy null, [place] - [facility] - [facility] & [place] 2 18:28:43 Body mass index 30+ - obesity 324428325 Active Jackie Reddy null, [place] - [facility] - [facility] & [place] 2 18:28:43 Obstructiv e sleep apnea syndrome 89253616 Active Jackie Reddy null, [place] - [facility] - [place] & [place] 2 18:28:43 Menopausal symptom 63173823 Active Jackie Reddy null, [place] - [facility] - [place] & [place] 2 18:28:43 Acid reflux 164761744 Active Jackie Reddy null, [place] - [facility] - [place] & [place] 2 18:28:43 Iron deficiency 72561843 Active Jackie Reddy null, [place] - [facility] - [place] & [place] 2 18:28:43 Hypersomni a 58529076 Active Jackie Reddy null, [place] - [facility] - [place] & [place] 2 18:28:43 Constipati on 00074156 Active Jackie Reddy null, [place] - [facility] & [place] 2 18:28:43 Iron deficiency anemia 24947422 Active 2023 LINDA Richardson [address] , [place], [address] , [facility] - [facility] & [place] 4 14:18:43 Intentiona l weight loss 003388213 Active 2023 LINDA Richardson [address] , [place], [address] , [place] - [facility] & [place] 4 14:19:00 Problem Notes None recorded. Procedures Surgical History Date Name Laterality Status Provider Name and Address Organization Details Recorded Time 05/25/19 21 Gastric bypass for obesity completed Brady Gama [place] - [facility] & [place] 12/07/2021 13:43:05 12/25/19 19 laparoscopic sleeve gastrectomy completed Brady Gama [facility] & [place] 12/07/2021 13:42:50 cervical polypectomy completed Brady Gama [place] [facility] & [place] 12/07/2021 13:44:52 Imaging Results None recorded. Procedure Notes None recorded. Medical Equipment None Reported. Allergies No known drug allergies Medications Name Sig Start Date Stop Date Status Note LastModified by Organization Details LastModified Time Iron (ferrous sulfate) 325 mg (65 mg iron) tablet Take 1 tablet twice a day by oral route. active Not Available Not Available No t Available prednisone 20 mg tablet TAKE 1 TABLET BY MOUTH ONCE DAILY FOR 7 DAYS 07/19 completed Not Available Not Available Not Available doxepin 100 mg capsule TAKE 1 CAPSULE BY MOUTH AT BEDTIME active Not Available Not Available No t Available omeprazole 20 mg capsule,del ayed release Take 1 {capsule} twice a day by oral route. 12/07 completed Not Available Not Available Not Available fluticasone propionate 50 mcg/actuati on nasal spray,suspe nsion USE 1 SPRAY(S) IN EACH NOSTRIL ONCE DAILY active Not Available Not Available No t Available sertraline 50 mg tablet TAKE 1 TABLET BY MOUTH ONCE DAILY 07/19 completed Not Available Not Available Not Available Vitamin B1 (Thiamine) 100 mg tablet Take by oral route. active Not Available Not Available No t Available escitalopra m 10 mg tablet TAKE 1 TABLET BY MOUTH ONCE DAILY 07/19 completed Not Available Not Available Not Available rosuvastati n 10 mg tablet TAKE 1 TABLET BY MOUTH ONCE DAILY active Not Available Not Available No t Available biotin active Not Available Not Availa ble Not Available Vitamin D3 active Not Available Not Av ailable Not Available collagen (bovine) 07/19 completed Not Available Not Available Not Available levocetiriz ine 5 mg tablet TAKE 1 TABLET BY MOUTH ONCE DAILY IN THE EVENING active Not Available Not Available No t Available desvenlafax ine succinate ER 50 mg tablet,exte nded release 24 hr TAKE 1 TABLET BY MOUTH ONCE DAILY active Not Available Not Available No t Available cholecalcif cameron (vitamin D3) 50 mcg (2,000 unit) tablet Take 1 {tablet} by oral route. 12/07 completed Not Available Not Available Not Available Multi For Her 50 Plus active Not Available Not Available Not Available vilazodone 40 mg tablet TAKE 1 TABLET BY MOUTH ONCE DAILY FOR 30 DAYS active Not Available Not Available No t Available vilazodone 20 mg tablet TAKE 1 TABLET BY MOUTH ONCE DAILY 07/19 completed Not Available Not Available Not Available desvenlafax ine succinate ER 25 mg tablet,exte nded release 24 hr TAKE 1 TABLET BY MOUTH ONCE DAILY FOR 7 DAYS, THEN EVERY OTHER DAY FOR 3 DOSES DIRECTED 07/19 completed Not Available Not Available Not Available Clenpiq 10 mg-3.5 gram-12 gram/160 mL oral solution Take twice a day by oral route. 12/07 completed Not Available Not Available Not Available Arthritis Pain (diclofenac ) 1 % topical gel APPLY TOPICALLY TO AFFECTED AREA THREE TIMES DAILY DIRECTED active Not Available Not Available No t Available Vitals Date Recorded Body height Heart rate Body temperature Body mass index (BMI) Body weight Systolic And Diastolic Provider Name and Address Organization Details Last Updated DateTime 4 157.48 cm 73 /min 98.2 [degF] 39.2 kg/m2 26007.8 4 g 108/64 mm[Hg] Kim Woods [facility] & [place] 14:02:02 Date Recorded Body height Body mass index (BMI) Body weight Body temperature Oxygen saturation Oxygen saturation in Arterial blood by Pulse oximetry Heart rate Systolic And Diastolic Provider Name and Address Organization Details Last Updated DateTime 2 157.48 cm 35.7 kg/m2 69336.2 3 g 97.7 [degF] 95 % 95 % 72 /min 106/68 mm[Hg] Brady Gama [facility] & [place] 13:34:24 Social History None recorded. Functional Status Question Answer Note LastModified by Organizat ion Details LastModified Time Do you use any illicit or recreational drugs? No Information not available 12/07/2021 What is your level of alcohol consumption? Occasional couple glasses of wine on the weekend Information not available 12/07/2021 Mental Status None recorded. Family History Relationship Description Onset Age of this Age Resolved Age Notes LastModified by Organization Details LastModified Time Father Heart disease [email or web address] Not available 2023 14:00:38 Father Multiple malignancy Not available 07/19 14:00:47 Maternal Grandfather Heart disease [email or web address] Not available 2023 14:00:38 Maternal Grandmother Heart disease [email or web address] Not available 2023 14:00:38 Maternal Grandmother Diabetes mellitus [email or web address] Not available 2023 14:01:06 Paternal Grandfather Heart disease [email or web address] Not available 2023 14:00:38 Paternal Grandmother Heart disease [email or web address] Not available 2023 14:00:38 Paternal Grandmother Diabetes mellitus [email or web address] Not available 2023 14:01:06 Mother Diabetes mellitus Not available 2023 14:01:06 Medical History No medical history recorded. Gynecological HistoryNo gynecological history recorded. Obstetrics History GPAL:G 0 P 0 0 0 0 Immunizations Vaccine Type Date Status Note Provider Amrik rodney and Address Organization Details Recorded Time Tdap 10/30/2013 completed Jackie Reddy null, [place] - [facility] [place] & [place] 12/06/2021 18:28:37 influenza, unspecified formulation 01/04/2023 completed Kim eller, [place] - [facility] - [place] & [place] 07/20/2023 13:59:39 Past Encounters Encounter ID Performer Location Encounter Start Date Encounter Closed Date Diagnosis/Indication Diagnosis SNOMED-CT Code Diagnosis ICD10 Code Diagnosis Note [id number] Bobby Munroe MD [address] [place] [address] 12/07/2021 13:04:10 12/07/2021 14:22:04 Iron deficiency 64804377 E61.1 Body mass index 30+ - obesity 423870608 E66.01 Adult heal th examination 997323362 Z00.00 patient follow-up with [facility] for mammogram. Currently is up-to-date on insurance account manager exams. Can follow-up here for insurance account manager exam or see OBGYN provider for the same. [id number] LINDA Richardson [facility]ariat[facility] and Adv S[facility] [address] [facility] [address] [place] [address] 07/20/2023 13:45:35 07/20/2023 15:02:26 Benign hypertension 12293494 I10 Normal blood pressure reading in office today. Iron defic iency anemia 67869389 D50.9 Patient is to continue vitamin supplement ation regimen we will check bariatric vitamin panel and discuss correction of deficienci es pending results History of gastrectomy 108875169 Z90.3 Extensive discussion today regarding refocus seeing on bariatric lifestyle. Applauded patient for returning to clinic for refocus seeing. We will have patient meet with our sewer pipe offbearer today for additional support.Ad vised qid intake 50% protein 9168-7616 calories/d y less than 100 carbs/dyLo ng discussion today of [employer] results including PBF(percen t body fat) SMM (skeletal muscle mass) Visceral fat level level BMR Segmental Fat Analysis and Segmental Lean Analysis.E ncouraged pt to take minimal calories as per BMR and to anticipate changes in SMM and PBF values not just total weight.Fol low-up with Repeat RANJEET in 3mth suggested Patient is status post bariatric surgery and at increased risk for vitamin deficienci es and malnutriti on. Bariatric vitamin panel ordered today. Patient will be contacted to correct any vitamin deficienci es. At [facility] risk of nutritional deficit 805789698 Z91.[id number], LD [facility] Bariatric s and Adv Surg [address] [facility] [address] [place] [address] 07/20/2023 14:34:37 07/24/2023 03:58:57 Morbid obesity 806709300 E66.01 BMI 39.2 Dietary ma nagement surveillance 977734025 Z71.3 Health Concerns Section Related Observation LastModified by Organization Detai ls LastModified Time None Recorded Concern Status LastModified by Organization Details LastModified Time None Recorded Advance Directives Directive None Recorded Payers Insurance Date Sequence Insurance Name Policy Number Policy Lewis Covered Member ID Lewis Member ID Guarantor Name 07/18/2023 1 [employer] [id number] Vinita Walker [id number] Vinita Riley Notes Date Note Type Note Provider Name and Address Organization Details Recorded Time 12/07/2021 text/html 51-year-old zandra alcaraz here for follow-up. Patient status post 1st gastric sleeve in 2019 and then Jennifer-en-Y status post severe reflux. Patient states reflux resolved after Jennifer-en-Y her weight heather was 165 now 195. patient has a past medical history of hypertension that resolved post surgery and weight loss. Other than that patient has a history of endometrial ablation now will was surgically postmenopausal. Gets annual breast exams and mammograms through the hospital. No other cerebrovascular disease cardiovascular disease. Has a strong family history of heart disease - father had his 1st heart attack at 31 years old. He was also super morbidly obese and was a smoker. Patient says herself has no history of cerebrovascular disease or cardiovascular disease. Patient does patient does have history of iron deficiency anemia secondary to poor absorption following surgery. Has had several iron infusions in the past. The past medical history of abnormal Pap smears in the past. Bobby Munroe MD [address], [place], [address], [facility] 12/07/2021 14:25:12 07/20/2023 text/html Patient presents the office today for routine follow-up status post bariatric surgery. LSG 2018 then RNY GB 2020 due to GERPt reports reflux has resolved.Patient presents today after long hiatus from our care wanting to refocus on weight loss. Reports >70g/dy protein intake and good hydration. Daily Calories - not tracking Denies hunger.In body today shows BMI 39.2 49% body fat basal metabolic rate 1441 skeletal muscle is 59.7 which is 120% predictedTaking routine vitamins as advised. Hx of iron deficiency last labs appear to be November 2021 by PCPHeartburn/gastroes ophageal reflux: deniesPt Denies : abdominal pain, prandial issues Nausea, Vomiting, bowel or bladder issues LINDA Richardson [address], [place], [address], [facility] 07/20/2023 14:31:51 07/20/2023 text/html ADIME TemplateA: SUSSY met w/Vinita Riley for 3 yr f/up via office visit s/p RNY. Pt weight 12/07/21: 195.2#Current Weight: 214.3#Total Weight Change: +19.1#Notes on weight: Signs/SymptomsN/V/C/D : none Pertinent Labs/Meds/Vitamin regimen: Taking mvi, b1 Physical activity: no Tracking food/beverages consumed: not been tracking Est. daily kcal intake: Est. daily protein intake: 70 gm Est. daily fluid intake: 64 oz Meal Pattern: Eating 3 meals a day, was grazing for awhile Additional notes/concerns: Patient would like to get back on track. Reviewed foods that will promote wt loss. Encouraged patient to limit or avoid processed foods and to start tracking on [employer]. Recommended patient start back on calcium citrate. Patient stated her lowest weight was 168# and would like to get to that weight or close to that weight. Provided updated manual I: RDN Recommendations/Goals :1. Eat 4 meals a day2. Start tracking kcal, pro, carbs, fat, and fiber3. Review manual for meal and snack ideas4. Start walking 3 days a week for 20 minutes Pt verbally agreed to recommendations and goals. Denied further questions/concerns. M/E: RD will monitor weight loss, labs, and lifestyle modifications. Will f/up as scheduled or PRN. . KIRSTEN AQUINO RD, LD [address], [place], [address], [facility] - [facility] - [place] & [place] 07/20/2023 15:08:54 OBGyn Episode Ob Episode Information Episode Created Date Number of Fetuses Patient Bloodtype Patient rh Status Prepregnancy Weight lbs Domestic Partner Domestic Partner Phone Father Name Physical Therapist Center Manager Status 12/08/19 22 1 CLOSED Fetus Data First Name Last Name Admitted to NICU Weight (g) Sex Living Outcome Pediatric Complications Fetus ID Race Codes Race Delivery Type F Full Term 79 Efren Calculation Initial Efren Date Initial Exam Date Initial Exam Provider Initial Ultrasound Date Last Menstrual Period Date Ultra Sound Weeks Gestation 0 Eighteen To Twenty Week Efren Update Ultra Sound Date Fundal Height At Umbil Quickening Date Ultra Sound Latest Weeks Gestation Final Efren Confirmed By Final Efren Confirmed Date Final Efren Date Ultra Sound Latest Days Gestation 0 0 Menstrual History Last Menstrual Date Menses Monthly On Bcp Conception Prior Menses Frequency Hcg Plus Date Menarche Onset Age Delivery Information Delivery Date Delivery Type Labor Anesthesia Weeks Gestation Incision Type Labor Labor Length Hrs Delivered By Post Complications Tubal Sterilization Discharge Date Comments 2 Discharge Information Feeding Method Contraceptive Method Maternal HG B and HCT Levels Ob Episode Information Episode Created Date Number of Fetuses Patient Bloodtype Patient rh Status Prepregnancy Weight lbs Domestic Partner Domestic Partner Phone Father Name Physical Therapist Center Manager Status 12/08/19 22 1 CLOSED Fetus Data First Name Last Name Admitted to NICU Weight (g) Sex Living Outcome Pediatric Complications Fetus ID Race Codes Race Delivery Type M Full Term 80 Efren Calculation Initial Efren Date Initial Exam Date Initial Exam Provider Initial Ultrasound Date Last Menstrual Period Date Ultra Sound Weeks Gestation 0 Eighteen To Twenty Week Efren Update Ultra Sound Date Fundal Height At Umbil Quickening Date Ultra Sound Latest Weeks Gestation Final Efren Confirmed By Final Efren Confirmed Date Final Efren Date Ultra Sound Latest Days Gestation 0 0 Menstrual History Last Menstrual Date Menses Monthly On Bcp Conception Prior Menses Frequency Hcg Plus Date Menarche Onset Age Delivery Information Delivery Date Delivery Type Labor Anesthesia Weeks Gestation Incision Type Labor Labor Length Hrs Delivered By Post Complications Tubal Sterilization Discharge Date Comments 3 Discharge Information Feeding Method Contraceptive Method Maternal HG B and HCT Levels
[2024-10-14 11:02] LABS: 25-OH Vitamin D, Total 54.9 ng/mL (30-100)
[2024-10-14 11:10] LABS: Alanine Aminotransferase 18 U/L (12-78); Albumin Level 4.4 g/dl (3.5-5.0); Albumin/Globulin Ratio 1.9 (1.1-1.8); Alkaline Phosphatase 74 U/L (38-126); Anion Gap 9.8 mEq/L (5-15); Aspartate Amino Transferase 29 U/L (14-36); Bilirubin,Total 0.6 mg/dl (0.2-1.3); Blood Urea Nitrogen 16 mg/dl (7-17); Calcium 10.2 mg/dl (8.4-10.2); Carbon Dioxide 32 mmol/L (22.0-30.0); Chloride 105 mmol/L (98-107); Cholesterol 141 mg/dl (140-200); Creatinine,Serum 0.80 mg/dl (0.52-1.04); Estimated Glomerular Filt Rate 75 ml/min (>60); GFR (African American) 90 ML/MIN (>60); Globulin 2.3 g/dL (1.3-3.2); Glucose 82 mg/dl (74-100); HDL Cholesterol 41 mg/dl (40-60); Potassium 4.8 mmoL/L (3.5-5.1); Sodium 142 mmol/L (136-145); Total Protein,Serum 6.7 g/dl (6.3-8.2); Triglycerides 95 mg/dl (30-150)
== END 2024-10-14 23:59 | disposition home or self-care (01) ==
LOC: LAB 09:56
PROVIDERS: PCP Nurse Practitioner Family; Visit Provider Nurse Practitioner Family
DX: E78.01 Familial hypercholesterolemia (principal); E55.9 Vitamin D deficiency, unspecified
CPT/HCPCS: 36415; 80053; 80061; 82306

== ENCOUNTER 2025-02-09 16:13 | Outpatient (CLI) | payer BC, SELFPAY ==
--- NOTE | 2025-02-09 16:17 | XR_ITS ---
PROCEDURE INFORMATION: Exam: XR Right Hip Exam date and time: 02/09/2025 4:21 PM Age: 54 years old Clinical indication: Hip pain; Right hip; Additional info: Acute right hp pain TECHNIQUE: Imaging protocol: Radiologic exam of the right hip. Views: 2 or 3 views hip with pelvis when performed. COMPARISON: No relevant prior studies available. FINDINGS: Bones/joints: Normal anatomic alignment. The bone density is normal for this patient's age. No acutely displaced fractures. No joint dislocation. No aggressive osseous lesions. Soft tissues: Unremarkable. IMPRESSION: No acute findings.
== END 2025-02-09 23:59 ==
LOC: RAD 16:14
PROVIDERS: PCP Nurse Practitioner Family; Visit Provider Nurse Practitioner Family
DX: M25.551 Pain in right hip (principal)
CPT/HCPCS: 73502